=== PATIENT | female | born 1990 | race Caucasian/White ===

== ENCOUNTER → 2017-12-12 11:47 | Outpatient (CLI) | payer OTHER, SELFPAY ==
[2017-12-12 12:32] LABS: Add Manual Diff / Slide Review NO; Basophils Percent Auto 0.4 % (0-2); Eosinophils Percent Auto 0.8 % (2-4); Hematocrit 41.6 % (36-46); Hemoglobin 14.2 g/dL (12.0-16.0); Lymphocytes Percent Auto 21.3 % (25-40); Mean Corpuscular HGB Conc 34.1 % (30-36); Mean Corpuscular Hemoglobin 30.4 PG (26-34); Mean Corpuscular Volume 89.4 fL (80-100); Monocytes Percent Auto 6.5 % (3-14); Neutrophils Absolute Auto 5900 /uL (3000-5900); Platelet Count 247 X10^3/uL (150-400); Red Blood Cell Count 4.66 X10^6/uL (4.0-5.2); Red Cell Distribution Width 12.6 % (11.6-14.8); White Blood Cell Count 8.3 X10^3/uL (4.5-11.0)
== END ==
PROVIDERS: Family Provider Family Medicine; PCP Family Medicine; Visit Provider Nurse Practitioner Family
DX: R10.31 Right lower quadrant pain (principal)
CPT/HCPCS: 36415; 85025

== ENCOUNTER → 2017-12-15 06:59 | Outpatient (CLI) | payer OTHER, SELFPAY ==
--- NOTE | 2017-12-15 07:00 | DI.US.S_ITS ---
PROCEDURE: US PELVIC COMPLETE INDICATIONS: PELVIC PAIN TECHNIQUE: Real-time scanning was performed of the pelvic organs, with image documentation. Additional endovaginal scanning was necessary due to incomplete visualization of the adnexal and endometrial structures by transabdominal scanning. COMPARISON: [facility], CT, ABDOMEN/PELVIS WITH CONTRAST, 05/26/2009, 15:45. FINDINGS: Transabdominal scanning: Limited scanning through the kidneys shows no hydronephrosis. No pathologic free abdominal or pelvic fluid. Endovaginal scanning: Uterus: Uterus is normal in size at 6.1 x 2.4 x 3.3 cm. The endometrium measures 3.3 mm in combined thickness. Ovaries: Left ovary not visualized. 1.2 cm follicular cyst involves the right ovary. IMPRESSION: No source for pelvic pain identified sonographically. Dictated by: Tim Mo [facility] Interpreted: Dotty Baker MD on 12/15/2017 at 8:56 Approved by: Dotty Baker MD, PhD on 12/15/2017 at 11:39
== END ==
PROVIDERS: Family Provider Family Medicine; PCP Family Medicine; Visit Provider Nurse Practitioner Family
DX: R10.2 Pelvic and perineal pain (principal)
CPT/HCPCS: 76830; 76856

== ENCOUNTER → 2017-12-21 12:44 | Outpatient (CLI) | payer OTHER, SELFPAY ==
[2017-12-21 14:41] LABS: Pregnancy Test Urine Negative (Negative)
== END ==
PROVIDERS: Family Provider Family Medicine; PCP Family Medicine; Visit Provider Nurse Practitioner Family
DX: N91.2 Amenorrhea, unspecified (principal)
CPT/HCPCS: 81025

== ENCOUNTER → 2018-05-31 11:20 | Outpatient (CLI) | payer OTHER, SELFPAY ==
[2018-05-31 12:13] LABS: Prolactin 16.9 ng/mL (3.0-18.6)
[2018-05-31 12:26] LABS: TSH w/ Reflex to FT4 1.63 uIU/mL (0.47-4.68)
== END ==
PROVIDERS: PCP Family Medicine; Visit Provider Specialist
DX: N91.2 Amenorrhea, unspecified (principal)
CPT/HCPCS: 36415; 84146; 84443

== ENCOUNTER → 2020-05-01 11:10 | Outpatient (CLI) | payer OTHER, SELFPAY ==
[2020-05-01 11:16] LABS: Bacteria Urine None Seen; RBC Urine None Seen (0-5/HPF); WBC Urine None Seen (0-5/HPF)
[2020-05-01 12:53] LABS: Appearance Urine UA CLEAR; Bilirubin Urine UA NEGATIVE (NEGATIVE); Color Urine UA YELLOW; Glucose Urine UA NEGATIVE (Negative); Ketones Urine UA NEGATIVE (NEGATIVE); Leukocyte Esterase Urine UA NEGATIVE (NEGATIVE); Nitrite Urine UA NEGATIVE (Negative); Occult Blood Urine UA NEGATIVE (Negative); Protein Urine UA NEGATIVE (Negative); Urobilinogen Urine UA 0.2 E.U./dL (0.2)
[2020-05-01 13:04] LABS: Amorphous Sediment Urine 2+; Culture Indicated Urine Cult Not Indicated; pH Urine UA 7.5 (4.5-8.0)
[2020-05-01 14:04] LABS: Creatinine Urine Random 35.6 mg/dL
[2020-05-01 14:22] LABS: Microalbumin Urine Random < 0.6 mg/dL (0-1.6)
[2020-05-01 14:27] LABS: Add Manual Diff / Slide Review NO; Basophils Absolute Auto 0 /uL (0-100); Basophils Percent Auto 0.5 % (0-2); Eosinophils Absolute Auto 0 /uL (0-450); Eosinophils Percent Auto 0.6 % (2-4); Hematocrit 40.6 % (36-46); Hemoglobin 13.8 g/dL (12.0-16.0); Lymphocytes Absolute Auto 1700 /uL (1100-4500); Lymphocytes Percent Auto 27.9 % (25-40); Mean Corpuscular Hemoglobin 30.5 PG (26-34); Mean Corpuscular Volume 89.7 fL (80-100); Monocytes Absolute Auto 500 /uL (0-900); Monocytes Percent Auto 7.8 % (3-14); Neutrophils Absolute Auto 3800 /uL (1500-7000); Neutrophils Percent Auto 63.2 % (50-75); Platelet Count 244 X10^3/uL (150-400); Red Blood Cell Count 4.53 X10^6/uL (4.0-5.2); White Blood Cell Count 6.1 X10^3/uL (4.5-11.0)
[2020-05-01 15:22] LABS: Alanine Aminotransferase 16 IU/L (<35); Albumin 4.4 g/dL (3.5-5.0); Albumin Globulin Ratio 1.6 (1.0-2.8); Alkaline Phosphatase 56 U/L (38-126); Aspartate Aminotransferase 20 IU/L (14-36); BUN Creatinine Ratio 14.8 (6-22); Bilirubin Total 0.3 mg/dL (0.2-1.3); Blood Urea Nitrogen 9 mg/dL (7-17); Calcium 9.3 mg/dL (8.4-10.2); Carbon Dioxide 24 mmol/L (22-32); Chloride 105 mmol/L (98-107); Cholesterol 177 mg/dL (140-199); Estimated Glomerular Filt Rate > 60.0 mL/min (>60); Globulin 2.7 g/dL (1.7-4.1); Glucose 98 mg/dL (70-100); HDL Cholesterol 48 mg/dL (40-60); HEMOLYSIS < 15 (0-50); LDL Cholesterol Calculated 109 mg/dL (<100); Potassium 4.2 mmol/L (3.4-5.1); Sodium 139 mmol/L (137-145); Total Protein 7.1 g/dL (6.3-8.2); Triglycerides 99 mg/dL (35-150)
[2020-05-01 15:37] LABS: Thyroid Stimulating Hormone 1.93 uIU/mL (0.47-4.68)
== END ==
PROVIDERS: Family Provider Family Medicine; PCP Family Medicine; Referring Provider Family Medicine; Visit Provider Family Medicine
DX: I10 Essential (primary) hypertension (principal); R00.2 Palpitations
CPT/HCPCS: 36415; 80053; 80061; 81001; 82043; 82570; 84443; 85025

== ENCOUNTER → 2020-05-06 13:34 | Outpatient (CLI) | payer OTHER, SELFPAY ==
--- NOTE | 2020-06-05 14:47 | P.HOLT.S_ITS ---
Information Services Assistant Report Referral & Results Date Patient Seen: 05/06/20 Requesting provider: Renae Thompson Indication: Hypertension Duration of monitoring (days): 14 Diary information: Patient at 24 patient triggered events and 20 patient diary entries All of these events were associated with sinus rhythm only Data: Minimum heart rate identified was 51 beats per minute at 08:33 on 05/09/2020 Maximum heart rate was 170 beats per minute at 10:55 on 05/10/2020 Less than 1% of identified beats rather ventricular supraventricular ectopic in origin No other dysrhythmias identified Impression: Normal 14 day cardiac surgeon without evidence of any dysrhythmia of any significance No correlation between patient reported symptoms and any dysrhythmia Clinical correlation suggested
== END ==
PROVIDERS: Family Provider Family Medicine; PCP Family Medicine; Referring Provider Family Medicine; Visit Provider Family Medicine
DX: I10 Essential (primary) hypertension (principal); R00.0 Tachycardia, unspecified
CPT/HCPCS: 0296T; 0298T

== ENCOUNTER → 2020-05-29 14:43 | Outpatient (CLI) | payer OTHER, SELFPAY ==
--- NOTE | 2020-05-29 14:44 | DI.ECHO.S_ITS ---
[facility] +---------+ [facility] +---------+ : : [address] : : : : [id number] : : : : Phone: [phone] Echocardiogram Report + + :Name: LEO DUNLAP Study Date: 05/29/2020 Height: 64 in : [id number] 189 lb : : Gender: Female BSA: 1.9 m2 : :: 1990 Age: 29 yrs BP: 156/102 mmHg: :Reason For Study: Hypertension : : Performed By: Makenna Norris : :Referring: ELISEO ASENCIO : + + Interpretation Summary 1) Normal left ventricular thickness, size, wall motion, and systolic function (EF 60-65%). 2) Normal right ventricular size and function. 3) No significant valvular abnormalities. 4) Hypertension present during the study (BP 156/102mmHg). 5) No prior Echo available for comparison. Procedure: A two-dimensional transthoracic echocardiogram with color flow and Doppler was performed. The study quality was technically adequate. There is no prior echocardiogram noted for this patient. The patient was in sinus tachycardia with heart rates between 104-117 bpm during the exam. Left Ventricle: The left ventricle is normal in size and wall thickness. The ejection fraction is estimated to be 60-65%. Left ventricular systolic function appears normal without focal wall motion abnormalities. Right Ventricle: The right ventricle is normal in size and function. Atria: The left atrium is mildly dilated. Right atrial size is normal. There is no Doppler evidence for an interatrial shunt. Mitral Valve: The mitral valve is normal in structure and function. There is no mitral regurgitation noted. Aortic Valve: The aortic valve is trileaflet. The aortic valve opens well. There is no aortic valve stenosis. No aortic regurgitation is present. Tricuspid Valve: The tricuspid valve is normal in structure and function. There is a trace or physiologic amount of tricuspid regurgitation. Pulmonary artery pressures cannot be estimated because of the lack of a measurable TR jet velocity. Pulmonic Valve: The pulmonic valve leaflets are thin and pliable; valve motion is normal. Great Vessels: The aortic root is normal size. The ascending aorta is normal in size. The pulmonary artery is normal size. The IVC is of normal diameter and collapses greater than 50% with a sniff. This suggests a low right atrial pressure of 3 mm Hg. Pericardium/ Pleura There is no pericardial effusion. MMode/2D Measurements & Calculations LVIDd: 5.0 cm LVOT diam: 2.2 cm LVIDs: 2.4 cm Ao root diam: 3.0 cm FS: 50.8 % asc Aorta Diam: 3.0 cm IVSd: 0.64 cm Ao Arch Diam (Prox Trans): 2.3 cm LVPWd: 0.85 cm LV feldman. diameter/BSA (cm/m^2): 2.6 LV sys. diameter/BSA (cm/m^2): 1.3 LA A2 area: 17.2 cm2 RA long axis: 5.2 cm LA A4 area: 21.7 cm2 RA area: 15.5 cm2 LA length (vol): 5.2 cm RA vol: 39.2 ml LA vol: 60.6 ml RA : 20.5 ml/m2 LA vol index: 31.7 ml/m2 IVC diam: 1.0 cm TAPSE: 2.5 cm Doppler Measurements & Calculations Ao V2 max: 147.8 cm/sec LVOT Max Jose: 123.1 cm/sec Ao V2 mean: 97.9 cm/sec LV V1 max P.1 mmHg Ao max P.7 mmHg LV V1 VTI: 19.6 cm Ao mean P.3 mmHg YOVANY(I,D): 3.5 cm2 Ao V2 VTI: 21.4 cm YOVANY(V,D): 3.2 cm2 sev ratio: 0.92 YOVANY indexed to BSA (cm^2/m^2): 1.8 MV E max jose: 87.4 cm/sec PA V2 max: 113.5 cm/sec MV A max jose: 109.6 cm/sec PA V2 mean: 81.4 cm/sec MV E/A: 0.80 PA mean P.9 mmHg Med Peak E' Jose: 11.3 cm/sec PA Accel Time: 0.10 sec E/E' med: 7.8 Lat Peak E' Jose: 14.0 cm/sec E/E' lat: 6.2 E/e' average: 7.0 MV dec time: 0.15 sec SV(LVOT): 74.8 ml Reading Physician:05:11 PM
== END ==
PROVIDERS: Family Provider Family Medicine; PCP Family Medicine; Referring Provider Family Medicine; Visit Provider Family Medicine
DX: R03.0 Elevated blood-pressure reading, without diagnosis of hypertension (principal)
CPT/HCPCS: 93306

== ENCOUNTER → 2020-08-14 12:40 | Outpatient (CLI) | payer OTHER, SELFPAY ==
[2020-08-14 14:22] LABS: BUN Creatinine Ratio 17.1 (6-22); Blood Urea Nitrogen 12 mg/dL (7-17); Carbon Dioxide 25 mmol/L (22-32); Chloride 103 mmol/L (98-107); Estimated Glomerular Filt Rate > 60.0 mL/min (>60); Glucose 84 mg/dL (70-100); HEMOLYSIS < 15 (0-50); Potassium 3.9 mmol/L (3.4-5.1); Sodium 135 mmol/L (137-145)
== END ==
PROVIDERS: Family Provider Family Medicine; PCP Family Medicine; Referring Provider Family Medicine; Visit Provider Family Medicine
DX: I10 Essential (primary) hypertension (principal)
CPT/HCPCS: 36415; 80048; 82088; 84244

== ENCOUNTER → 2020-08-22 11:24 | Outpatient (CLI) | payer OTHER, SELFPAY ==
[2020-08-25 00:07] LABS: Normetanephrine Total 316 ug/24 hr (95-449); Urine, Metanephrine 90 ug/L (Undefined); Urine, Normetanephrine 218 ug/L (Undefined)
== END ==
PROVIDERS: Family Provider Family Medicine; PCP Family Medicine; Referring Provider Family Medicine; Visit Provider Family Medicine
DX: I10 Essential (primary) hypertension (principal)
CPT/HCPCS: 83835

== ENCOUNTER → 2020-09-23 12:10 | Outpatient (CLI) | payer OTHER, SELFPAY ==
--- NOTE | 2020-09-23 12:11 | DI.MRI.S_ITS ---
PROCEDURE: MR STROKE Pre- and post-contrast brain MRI, non-contrast brain MR angiogram, pre- and postcontrast neck MR angiogram INDICATIONS: visual field changes, uncontrolled hypertension TECHNIQUE: Brain: Noncontrast axial T1 spin echo, axial T2 fast spin echo, sagittal and axial FLAIR, coronal T2 fast spin echo, axial gradient echo, axial diffusion and ADC through the brain. After the administration of contrast, axial 3D VIBE of the cranial vasculature and brain. Brain MRA: Non-contrast 3-D time of flight MR angiogram, with multiple nvshrii-gjzwdmvpz-idhpauiikh (MIP) reformats performed. Neck MRA: Axial and sagittal TruFISP through the neck. Coronal dynamic MR angiogram during administration of contrast in the arterial and venous phases, with 3-dimenstional dpltsgi-gkeghxqkn-lxokudgzge (MIP) reformats constructed from subtraction images. COMPARISON: None. FINDINGS: Image quality: Excellent. BRAIN: CSF spaces: Ventricles are normal in size and shape. Basal cisterns are patent. No extra-axial fluid collections. Brain: No intracranial bleeds or mass effects. Montoya-white matter interface is normal. Diffusion weighted images show no acute ischemic insults. Brainstem appears normal. Normal intravascular flow voids are present. Dural sinuses demonstrate normal postcontrast enhancement. No abnormal intracranial enhancement. Skull and face: Calvarial marrow signal is normal. Orbits appear normal. Sinuses: Sinuses and mastoids are clear. BRAIN MR ANGIOGRAM: Anterior circulation: Intracranial internal carotid arteries are normal in size and enhancement. The flow within the paired anterior cerebral arteries is normal and symmetric. The flow within the middle cerebral arteries is normal and symmetric. The anterior communicating artery is seen. No stenoses, occlusions, or aneurysms. Posterior circulation: The visualized portions of the vertebral arteries demonstrate normal caliber, and join to form a normal appearing basilar artery. The flow within the posterior cerebral arteries is normal and symmetric. Right posterior cerebral artery has a origin which is a congenital anatomic variant. No stenoses, occlusions, or aneurysms. NECK MR ANGIOGRAM: Carotids: Great vessels demonstrate a conventional anatomy as they arise from the aortic arch. The origins of the common carotid arteries appear patent. The calibers and courses of both common carotid arteries are normal. The bifurcation regions appear normal bilaterally. The internal carotid arteries demonstrate normal course and caliber. Posterior circulation: The origins of the vertebral arteries appear patent. More superior portions of both vertebral arteries demonstrate normal course and caliber, and join to form a normal appearing basilar artery. Miscellaneous: Subclavian arteries appear patent. Pre-contrast images through the neck show no soft tissue abnormalities. IMPRESSION: BRAIN MRI: 1. No intracranial disease process. 2. No areas of acute or chronic infarction. 3. No abnormal intracranial mass or mass effect. 4. No suspicious postcontrast enhancement. BRAIN MR ANGIOGRAM: Normal MR angiogram of the head. NECK MR ANGIOGRAM: Normal MR angiogram of the neck. Dictated by: Dotty Baker MD, PhD on 09/23/2020 at 13:40 Approved by: Dotty Baker MD, PhD on 09/23/2020 at 13:56
== END ==
PROVIDERS: Family Provider Family Medicine; PCP Family Medicine; Referring Provider Family Medicine; Visit Provider Family Medicine
DX: H53.9 Unspecified visual disturbance (principal); I10 Essential (primary) hypertension
CPT/HCPCS: 70548; 70553

== ENCOUNTER → 2021-02-05 09:52 | Outpatient (CLI) | payer OTHER, SELFPAY ==
[2021-02-05 12:07] LABS: BUN Creatinine Ratio 16.7 (6-22); Blood Urea Nitrogen 12 mg/dL (7-17); Calcium 9.1 mg/dL (8.4-10.2); Carbon Dioxide 30 mmol/L (22-32); Chloride 104 mmol/L (98-107); Cholesterol 171 mg/dL (140-199); Estimated Glomerular Filt Rate > 60.0 mL/min (>60); Glucose 83 mg/dL (70-100); HDL Cholesterol 48 mg/dL (40-60); HEMOLYSIS < 15 (0-50); LDL Cholesterol Calculated 106 mg/dL (<100); Magnesium 1.9 mg/dL (1.6-2.3); Sodium 137 mmol/L (137-145); Triglycerides 84 mg/dL (35-150)
[2021-02-05 13:18] LABS: Thyroid Stimulating Hormone 1.26 uIU/mL (0.47-4.68)
[2021-02-11 16:32] LABS: Renin Activity 0.413 ng/mL/hr (0.167-5.380)
== END ==
PROVIDERS: Family Provider Family Medicine; PCP Family Medicine; Referring Provider Internal Medicine Cardiovascular Disease; Visit Provider Internal Medicine Cardiovascular Disease
DX: I10 Essential (primary) hypertension (principal)
CPT/HCPCS: 36415; 80048; 80061; 82088; 83735; 83835; 84244; 84443

== ENCOUNTER → 2021-08-02 09:57 | Outpatient (CLI) | payer OTHER, SELFPAY | PROVIDERS: Family Provider Family Medicine; PCP Family Medicine; Visit Provider Family Medicine | DX: Z34.91 Encounter for supervision of normal pregnancy, unspecified, first trimester (principal); Z3A.10 10 weeks gestation of pregnancy | CPT/HCPCS: 87086 ==

== ENCOUNTER → 2021-08-02 11:06 | Outpatient (CLI) | payer OTHER, SELFPAY ==
[2021-08-02 12:05] LABS: Add Manual Diff / Slide Review NO; Appearance Urine UA SL CLOUDY; Basophils Absolute Auto 0 /uL (0-100); Basophils Percent Auto 0.3 % (0-2); Bilirubin Urine UA NEGATIVE (NEGATIVE); Color Urine UA YELLOW; Eosinophils Absolute Auto 0 /uL (0-450); Eosinophils Percent Auto 0.4 % (2-4); Glucose Urine UA NEGATIVE (Negative); Hematocrit 37.5 % (36-46); Hemoglobin 12.9 g/dL (12.0-16.0); Ketones Urine UA TRACE (NEGATIVE); Leukocyte Esterase Urine UA NEGATIVE (NEGATIVE); Lymphocytes Absolute Auto 1800 /uL (1100-4500); Lymphocytes Percent Auto 21.1 % (25-40); Mean Corpuscular HGB Conc 34.5 % (30-36); Mean Corpuscular Hemoglobin 30.9 PG (26-34); Mean Corpuscular Volume 89.7 fL (80-100); Monocytes Absolute Auto 600 /uL (0-900); Monocytes Percent Auto 7.3 % (3-14); Neutrophils Absolute Auto 5900 /uL (1500-7000); Neutrophils Percent Auto 70.9 % (50-75); Nitrite Urine UA NEGATIVE (Negative); Occult Blood Urine UA NEGATIVE (Negative); Platelet Count 245 X10^3/uL (150-400); Protein Urine UA NEGATIVE (Negative); Red Blood Cell Count 4.18 X10^6/uL (4.0-5.2); Red Cell Distribution Width 12.5 % (11.6-14.8); Urobilinogen Urine UA 0.2 E.U./dL (0.2); White Blood Cell Count 8.4 X10^3/uL (4.5-11.0)
[2021-08-02 13:39] LABS: Alanine Aminotransferase 19 IU/L (<35); Albumin Globulin Ratio 1.5 (1.0-2.8); Alkaline Phosphatase 53 U/L (38-126); Aspartate Aminotransferase 20 IU/L (14-36); BUN Creatinine Ratio 15.2 (6-22); Bilirubin Total 0.4 mg/dL (0.2-1.3); Blood Urea Nitrogen 7 mg/dL (7-17); Calcium 9.5 mg/dL (8.4-10.2); Carbon Dioxide 25 mmol/L (22-32); Chloride 103 mmol/L (98-107); Estimated Glomerular Filt Rate > 60.0 mL/min (>60); Globulin 2.6 g/dL (1.7-4.1); Glucose 82 mg/dL (70-100); HEMOLYSIS < 15 (0-50); Potassium 4.3 mmol/L (3.4-5.1); Sodium 134 mmol/L (137-145); Total Protein 6.6 g/dL (6.3-8.2)
[2021-08-02 16:09] LABS: Hepatitis B Surface Antigen NEGATIVE s/c (NEGATIVE)
[2021-08-02 16:34] LABS: HIV 1 & 2 Ab/Ag 4th Gen Combo NEGATIVE (NEGATIVE)
[2021-08-02 16:44] LABS: Hep C Virus Ab w/Reflex Quant NEGATIVE s/c (NEGATIVE)
[2021-08-03 11:08] LABS: RPR Screen Non Reactive (Non Reactive); Varicella IgG Antibody 1253 index (Immune >165)
== END ==
PROVIDERS: Family Provider Family Medicine; PCP Family Medicine; Referring Provider Family Medicine; Visit Provider Family Medicine
DX: O16.1 Unspecified maternal hypertension, first trimester (principal); Z3A.10 10 weeks gestation of pregnancy
CPT/HCPCS: 36415; 80053; 80055; 81003; 86787; 86803; 86850; 86900; 86901; 87086; 87389

== ENCOUNTER → 2021-08-06 09:53 | Outpatient (CLI) | payer OTHER, SELFPAY ==
[2021-08-06 16:51] LABS: Collection Time Urine 24 Hours; Protein (Total) Urine Random 5 mg/dL (0-12); Total Protein 24 Hour Urine 123 mg/day (42-225); Total Volume Urine 2450 mL
== END ==
PROVIDERS: Family Provider Family Medicine; PCP Family Medicine; Referring Provider Family Medicine; Visit Provider Family Medicine
DX: I10 Essential (primary) hypertension (principal); Z3A.10 10 weeks gestation of pregnancy
CPT/HCPCS: 84156

== ENCOUNTER 2021-09-08 15:32 | Emergency (ER) | payer OTHER, SELFPAY ==
[2021-09-08 15:39] VITALS: BP 143/79; PULSE 110; RESP 20; TEMP 36.7; O2SAT 100; BMI 33.5
[2021-09-08 16:15] LABS: Add Manual Diff / Slide Review NO; Basophils Absolute Auto 0 /uL (0-100); Basophils Percent Auto 0.2 % (0-2); Eosinophils Absolute Auto 100 /uL (0-450); Eosinophils Percent Auto 0.8 % (2-4); Hematocrit 34.8 % (36-46); Hemoglobin 12.2 g/dL (12.0-16.0); Lymphocytes Absolute Auto 1900 /uL (1100-4500); Lymphocytes Percent Auto 17.5 % (25-40); Mean Corpuscular HGB Conc 35.1 % (30-36); Mean Corpuscular Hemoglobin 31.3 PG (26-34); Mean Corpuscular Volume 89.2 fL (80-100); Monocytes Absolute Auto 800 /uL (0-900); Monocytes Percent Auto 7.2 % (3-14); Neutrophils Absolute Auto 8200 /uL (1500-7000); Neutrophils Percent Auto 74.3 % (50-75); Platelet Count 232 X10^3/uL (150-400); Red Cell Distribution Width 12.7 % (11.6-14.8)
[2021-09-08 16:26] LABS: Alanine Aminotransferase 17 IU/L (<35); Albumin 3.9 g/dL (3.5-5.0); Albumin Globulin Ratio 1.4 (1.0-2.8); Alkaline Phosphatase 46 U/L (38-126); Aspartate Aminotransferase 25 IU/L (14-36); BUN Creatinine Ratio 18.6 (6-22); Bilirubin Total 0.3 mg/dL (0.2-1.3); Blood Urea Nitrogen 8 mg/dL (7-17); Calcium 9.2 mg/dL (8.4-10.2); Carbon Dioxide 26 mmol/L (22-32); Chloride 105 mmol/L (98-107); Creatine Kinase 61 U/L (30-135); Estimated Glomerular Filt Rate > 60.0 mL/min (>60); Globulin 2.8 g/dL (1.7-4.1); Glucose 84 mg/dL (70-100); HEMOLYSIS 19 (0-50); Lipase 110 U/L (23-300); Magnesium 1.7 mg/dL (1.6-2.3); Potassium 3.8 mmol/L (3.4-5.1); Sodium 134 mmol/L (137-145); Total Protein 6.7 g/dL (6.3-8.2)
[2021-09-08 16:30] VITALS: BP 141/74; PULSE 107; RESP 17; O2SAT 98
[2021-09-08 16:33] VITALS: BP 141/74; PULSE 98; RESP 20; O2SAT 100
[2021-09-08 16:37] LABS: Troponin I < 0.012 ng/mL (0.01-0.034)
--- NOTE | 2021-09-08 16:41 | ED_ITS ---
HPI - Arrhythmia/Palpitations General Chief Complaint: Arrhythmia/Palpitations Stated Complaint: A-FIB, Hx 15 weeks Time Seen by Provider: 09/08/21 15:46 Source: patient and family Mode of arrival: Ambulatory History of Present Illness HPI narrative: 31-year-old female. Has a history of POTS syndrome and also inappropriate tachy cardia. She is also 15 weeks . She is on labetalol because of her . Has seen cardiology in the past. Is here because she states that her Apple watch told her that she was having episodes of AFib. She states she does feel like her heart was beating fast. She is not having chest pain. No shortness of breath. No /GI/ related complaints. Related Data Home Medications Medication Instructions Recorded Confirmed potassium chloride 10 mEq 10 meq PO DAILY 06/04/21 06/04/21 tablet,extended release Previous Rx's Medication Instructions Recorded albuterol sulfate 90 mcg/actuation 2 puff INHALATION Q4-6H PRN #8.5 05/28/19 aerosol inhaler gram hydroxyzine HCl 25 mg tablet See Rx Instructions .ROUTE 05/03/21 .COMPLEX #60 tab escitalopram oxalate 5 mg tablet See Rx Instructions .ROUTE 07/05/21 .COMPLEX #90 tab labetalol 200 mg tablet 200 mg PO BID #60 tab 08/30/21 Allergies Allergy/AdvReac Type Severity Reaction Status Date / Time avocado [AVOCADO] Allergy Unknown Verified 09/08/21 15:43 banana [BANANA] Allergy Unknown Verified 09/08/21 15:43 egg [EGG] Allergy Unknown Verified 09/08/21 15:43 Review of Systems Constitutional Constitutional: Reports system reviewed and no additional complaints, except as documented Cardiovascular Cardiovascular: Reports system reviewed and no additional complaints, except as documented Respiratory Respiratory: Reports system reviewed and no additional complaints, except as documented Gastrointestinal Gastrointestinal: Reports system reviewed and no additional complaints, except as documented Integumentary/Breasts Skin/Breast: Reports system reviewed and no additional complaints, except as documented Hematologic/Lymphatic On Anticoagulants: No Patient History Medical History Abnormal Pap smear of cervix (2009) Anxiety Asthma Bipolar disorder (2015) JOSE M I (cervical intraepithelial neoplasia I) Depression (2015) Essential hypertension History of allergy HPV (human papilloma virus) infection (2009) Surgical History (Updated 07/29/21 @ 11:50 by Asia Villagran RN) H/O dilation and curettage S/P cubital tunnel release (~2017) Family History Mother Age: 46 Hypertension Diabetes mellitus Hyperlipidemia Father Alcoholism Family/Other Stroke Arrhythmia CHAPARRO (obstructive sleep apnea) Social History marital status: unmarried,living together household members: significant other lives independently: Yes housing: house pets and animals: Yes (dogs) education level: college occupational status: employed 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 use: always water heater temp set < 120 deg: Yes working smoke detector in home: Yes fire extinguisher in home: Yes carbon monox detector in home: Yes firearms in home: Yes firearms unloaded and locked: Yes do you feel safe at home: Yes Smoking Status: Never smoker second hand exposure: No alcohol intake: former substance use type: does not use during the past year weight has: remained stable well-balanced diet: about half the time daily servings fruits/ve-1 caffeine: Yes (200mg) Type(s) of exercise: none Smoking Status: Never smoker alcohol intake frequency: 0-2 drinks per day Substance Use Type: does not use Exam Initial Vital Signs Initial Vital Signs: Vital Signs Temperature 98.1 F 09/08/21 15:39 Pulse Rate 110 H 09/08/21 15:39 Respiratory Rate 20 09/08/21 15:39 Blood Pressure 143/79 H 09/08/21 15:39 Pulse Oximetry 100 09/08/21 15:39 HENMT Head: normal to inspection and normocephalic Resp Effort & Inspection: normal respiratory effort Auscultation: clear to auscultation bilaterally Cardio Rate: tachycardic Rhythm: regular rhythm Skin General: no rashes or lesions noted Neuro General: patient alert, patient awake and moves all extremities Extrem General: normal to inspection and capillary refill normal Psych Appearance: grossly normal and well kempt Course Orders Ordered: ED Orders 09/08/21 15:44 EKG-12 Lead Stat 09/08/21 16:05 Complete Blood Count AUTO DIFF Stat Comprehensive Metabolic Panel Stat Lipase Stat Magnesium Stat Troponin & CK Cardiac Panel Stat Vital Signs Vital signs: Vital Signs - 8 hr 09/08/21 15:39 09/08/21 16:30 09/08/21 16:33 Temperature 98.1 F Pulse Rate 110 H 107 H 98 H Respiratory Rate 20 17 20 Blood Pressure 143/79 H 141/74 H 141/74 H Pulse Oximetry 100 98 100 MDM - Arrhythmia/Palpitations Lab Data Attestation: I reviewed the patient's lab results. Result diagrams: 09/08/21 16:05 09/08/21 16:05 Labs: Lab Results 09/08/21 09/08/21 Range/Units 16:05 16:05 WBC 11.0 (4.5-11.0) X10^3/uL RBC 3.90 L (4.0-5.2) X10^6/uL Hgb 12.2 (12.0-16.0) g/dL Hct 34.8 L (36-46) % MCV 89.2 (80-100) fL MCH 31.3 (26-34) PG MCHC 35.1 (30-36) % RDW 12.7 (11.6-14.8) % Plt Count 232 (150-400) X10^3/uL Neut % (Auto) 74.3 (50-75) % Lymph % (Auto) 17.5 L (25-40) % Canadian % (Auto) 7.2 (3-14) % Eos % (Auto) 0.8 L (2-4) % Baso % (Auto) 0.2 (0-2) % Neut # (Auto) 8200 H (8405-5988) /uL Lymph # (Auto) 1900 (7044-0861) /uL Canadian # (Auto) 800 (0-900) /uL Eos # (Auto) 100 (0-450) /uL Baso # (Auto) 0 (0-100) /uL Sodium 134 L (137-145) mmol/L Potassium 3.8 (3.4-5.1) mmol/L Chloride 105 (98-107) mmol/L Carbon Dioxide 26 (22-32) mmol/L BUN 8 (7-17) mg/dL Creatinine 0.43 L (0.52-1.04) mg/dL Estimated GFR > 60.0 (>60) mL/min BUN/Creatinine Ratio 18.6 (6-22) Glucose 84 (70-100) mg/dL Calcium 9.2 (8.4-10.2) mg/dL Magnesium 1.7 (1.6-2.3) mg/dL Total Bilirubin 0.3 (0.2-1.3) mg/dL AST 25 (14-36) IU/L ALT 17 (<35) IU/L Alkaline Phosphatase 46 (38-126) U/L Total Creatine Kinase 61 (30-135) U/L CK-MB (CK-2) TNP CK-MB (CK-2) Rel Index TNP Troponin I < 0.012 (0.01-0.034) ng/mL Total Protein 6.7 (6.3-8.2) g/dL Albumin 3.9 (3.5-5.0) g/dL Globulin 2.8 (1.7-4.1) g/dL Albumin/Globulin Ratio 1.4 (1.0-2.8) Lipase 110 (23-300) U/L ECG Data Attestation: I personally reviewed and interpreted this ECG as follows: Prior ECG tracings: available for review Interpretation: Sinus tachycardia Ventricular rate 109 Normal axis Normal QRS Normal QTC No ST T wave changes MDM Narrative Medical decision making narrative: Patient is not having any GI or related complaints. She is not in atrial fibrillation. She did have copies of what her apple watch was calling atrial fibrillation and it is sinus rhythm with PACs. Patient is in sinus tachycardia here in the ER which is not uncommon for her given her prior history. No further workup is required here in the emergency department. She will continue all of her medications as directed and contact her primary doctor for a follow-u p. She expressed understanding agreement plan. Discharge Plan Departure Patient Disposition: Home Clinical Impression: Tachycardia, Instructions: DI for Tachycardia Activity Restrictions/Additional Instructions: Recommend that you keep all of your scheduled medical appointments continue to take all of your medications as directed. Return to the emergency department for any new or worsening symptoms. Prescriptions: No Action potassium chloride 10 mEq tablet extended release 10 meq PO DAILY 0RF albuterol sulfate 90 mcg/actuation HFA aerosol inhaler 2 puff INHALATION Q4-6H PRN (Reason: bronchospasm) Qty: 8.5 0RF labetalol 200 mg tablet 200 mg PO BID Qty: 60 2RF hydroxyzine HCl 25 mg tablet See Rx Instructions .ROUTE .COMPLEX Qty: 60 5RF Hold Instructions: , per Dr. Chinchilla Dose Instruction: TAKE 1 TO 2 TABLETS BY MOUTH 3 TO 4 TIMES DAILY NEEDED FOR ANXIETY Rx Instructions: TAKE 1 TO 2 TABLETS BY MOUTH 3 TO 4 TIMES DAILY NEEDED FOR ANXIETY escitalopram oxalate 5 mg tablet See Rx Instructions .ROUTE .COMPLEX Qty: 90 1RF Dose Instruction: TAKE 1 TABLET BY MOUTH DAILY Rx Instructions: TAKE 1 TABLET BY MOUTH DAILY Referrals: Renae Thompson MD [Primary Care Provider] -
== END 2021-09-08 16:55 | disposition home or self-care (01) ==
PROVIDERS: Emergency Provider Emergency Medicine; Family Provider Family Medicine; PCP Family Medicine
DX: O99.412 Diseases of the circulatory system complicating pregnancy, second trimester (principal); R00.0 Tachycardia, unspecified; Z3A.15 15 weeks gestation of pregnancy
CPT/HCPCS: 36415; 80053; 82550; 83690; 83735; 84484; 85025; 93005; 99283; 99284

== ENCOUNTER → 2021-10-04 11:05 | Outpatient (CLI) | payer OTHER, SELFPAY ==
[2021-10-04 11:48] LABS: Appearance Urine UA CLEAR; Bilirubin Urine UA NEGATIVE (NEGATIVE); Color Urine UA YELLOW; Glucose Urine UA NEGATIVE (Negative); Ketones Urine UA NEGATIVE (NEGATIVE); Leukocyte Esterase Urine UA NEGATIVE (NEGATIVE); Nitrite Urine UA NEGATIVE (Negative); Occult Blood Urine UA NEGATIVE (Negative); Protein Urine UA NEGATIVE (Negative); Urobilinogen Urine UA 0.2 E.U./dL (0.2)
[2021-10-04 11:57] LABS: Bacteria Urine None Seen; Culture Indicated Urine Cult Not Indicated; RBC Urine None Seen (0-5/HPF); Urine Comments Microscopic Normal; WBC Urine None Seen (0-5/HPF)
[2021-10-04 12:04] LABS: Creatinine Urine Random 48.9 mg/dL; Protein (Total) Urine Random 8 mg/dL (0-12); Protein Creatinine Ratio Urine 0.16 GRAM/24H
[2021-10-04 12:07] LABS: Add Manual Diff / Slide Review NO; Basophils Absolute Auto 0 /uL (0-100); Basophils Percent Auto 0.3 % (0-2); Eosinophils Absolute Auto 100 /uL (0-450); Eosinophils Percent Auto 0.5 % (2-4); Hematocrit 37.2 % (36-46); Hemoglobin 12.8 g/dL (12.0-16.0); Lymphocytes Absolute Auto 1400 /uL (1100-4500); Lymphocytes Percent Auto 12.1 % (25-40); Mean Corpuscular HGB Conc 34.3 % (30-36); Mean Corpuscular Hemoglobin 30.6 PG (26-34); Mean Corpuscular Volume 89.1 fL (80-100); Monocytes Absolute Auto 600 /uL (0-900); Monocytes Percent Auto 5.7 % (3-14); Neutrophils Absolute Auto 9100 /uL (1500-7000); Neutrophils Percent Auto 81.4 % (50-75); Platelet Count 215 X10^3/uL (150-400); Red Blood Cell Count 4.18 X10^6/uL (4.0-5.2); Red Cell Distribution Width 12.5 % (11.6-14.8); White Blood Cell Count 11.2 X10^3/uL (4.5-11.0)
[2021-10-04 12:08] LABS: Alanine Aminotransferase 23 IU/L (<35); Albumin 3.7 g/dL (3.5-5.0); Albumin Globulin Ratio 1.4 (1.0-2.8); Alkaline Phosphatase 62 U/L (38-126); Aspartate Aminotransferase 23 IU/L (14-36); BUN Creatinine Ratio 6.3 (6-22); Bilirubin Total 0.2 mg/dL (0.2-1.3); Blood Urea Nitrogen 3 mg/dL (7-17); Calcium 8.4 mg/dL (8.4-10.2); Carbon Dioxide 24 mmol/L (22-32); Chloride 106 mmol/L (98-107); Estimated Glomerular Filt Rate > 60 mL/min (>60); Globulin 2.7 g/dL (1.7-4.1); Glucose 77 mg/dL (70-100); HEMOLYSIS < 15 (0-50); Potassium 3.8 mmol/L (3.4-5.1); Sodium 135 mmol/L (137-145); Total Protein 6.4 g/dL (6.3-8.2)
== END ==
PROVIDERS: Family Provider Family Medicine; PCP Family Medicine; Referring Provider Family Medicine; Visit Provider Family Medicine
DX: I10 Essential (primary) hypertension (principal); Z34.80 Encounter for supervision of other normal pregnancy, unspecified trimester; R30.0 Dysuria
CPT/HCPCS: 36415; 80053; 81001; 82570; 84156; 85025; 87086

== ENCOUNTER → 2021-10-06 15:13 | Outpatient (CLI) | payer OTHER, SELFPAY | PROVIDERS: Family Provider Family Medicine; PCP Family Medicine; Visit Provider Nurse Practitioner Family | DX: J02.9 Acute pharyngitis, unspecified (principal) | CPT/HCPCS: 87070 ==

== ENCOUNTER → 2021-10-09 09:50 | Outpatient (CLI) | payer OTHER, SELFPAY ==
[2021-10-09 10:53] LABS: Collection Time Urine 24 Hours; Protein (Total) Urine Random < 5 mg/dL (0-12); Total Protein 24 Hour Urine 65 mg/day (42-225); Total Volume Urine 1300 mL
== END ==
PROVIDERS: Family Provider Family Medicine; PCP Family Medicine; Referring Provider Family Medicine; Visit Provider Family Medicine
DX: I10 Essential (primary) hypertension (principal); Z34.80 Encounter for supervision of other normal pregnancy, unspecified trimester
CPT/HCPCS: 84156

== ENCOUNTER → 2021-10-14 17:22 | Outpatient (CLI) | payer OTHER, SELFPAY ==
[2021-10-14 18:12] LABS: Influenza A - CEPHEID Flu A NEGATIVE (NEGATIVE); Influenza B - CEPHEID Flu B NEGATIVE (NEGATIVE)
[2021-10-14 18:22] LABS: COVID-19 CEPHEID PCR (VTM/NP) Negative (Negative)
== END ==
PROVIDERS: Family Provider Family Medicine; PCP Family Medicine; Visit Provider Nurse Practitioner Family
DX: R05.9 Cough, unspecified (principal); Z20.822 Contact with and (suspected) exposure to COVID-19
CPT/HCPCS: 0240U

== ENCOUNTER → 2021-11-03 11:41 | Outpatient (CLI) | payer OTHER, SELFPAY ==
[2021-11-03 12:52] LABS: Add Manual Diff / Slide Review NO; Basophils Absolute Auto 0 /uL (0-100); Basophils Percent Auto 0.3 % (0-2); Eosinophils Absolute Auto 100 /uL (0-450); Eosinophils Percent Auto 0.6 % (2-4); Hematocrit 34.7 % (36-46); Hemoglobin 12.1 g/dL (12.0-16.0); Lymphocytes Absolute Auto 1600 /uL (1100-4500); Lymphocytes Percent Auto 15.9 % (25-40); Mean Corpuscular Volume 88.7 fL (80-100); Monocytes Absolute Auto 600 /uL (0-900); Monocytes Percent Auto 6.3 % (3-14); Neutrophils Absolute Auto 8000 /uL (1500-7000); Neutrophils Percent Auto 76.9 % (50-75); Platelet Count 233 X10^3/uL (150-400); Red Blood Cell Count 3.91 X10^6/uL (4.0-5.2); Red Cell Distribution Width 12.9 % (11.6-14.8); White Blood Cell Count 10.4 X10^3/uL (4.5-11.0)
[2021-11-03 13:11] LABS: Alanine Aminotransferase 25 IU/L (<35); Albumin 3.5 g/dL (3.5-5.0); Albumin Globulin Ratio 1.3 (1.0-2.8); Alkaline Phosphatase 66 U/L (38-126); Aspartate Aminotransferase 26 IU/L (14-36); BUN Creatinine Ratio 15.8 (6-22); Bilirubin Total 0.2 mg/dL (0.2-1.3); Blood Urea Nitrogen 6 mg/dL (7-17); Calcium 8.7 mg/dL (8.4-10.2); Carbon Dioxide 24 mmol/L (22-32); Chloride 104 mmol/L (98-107); Estimated Glomerular Filt Rate > 60 mL/min (>60); Globulin 2.6 g/dL (1.7-4.1); Glucose 78 mg/dL (70-100); HEMOLYSIS < 15 (0-50); Sodium 134 mmol/L (137-145); Total Protein 6.1 g/dL (6.3-8.2)
[2021-11-03 13:35] LABS: TSH w/ Reflex to FT4 2.16 uIU/mL (0.47-4.68)
[2021-11-03 15:42] LABS: Creatinine Urine Random 120.1 mg/dL; Protein (Total) Urine Random 9 mg/dL (0-12); Protein Creatinine Ratio Urine 0.07 GRAM/24H
== END ==
PROVIDERS: Family Provider Family Medicine; PCP Family Medicine; Referring Provider Family Medicine; Visit Provider Family Medicine
DX: Z34.80 Encounter for supervision of other normal pregnancy, unspecified trimester (principal); R53.83 Other fatigue; I10 Essential (primary) hypertension; Z3A.21 21 weeks gestation of pregnancy
CPT/HCPCS: 36415; 80053; 82570; 84156; 84443; 85025

== ENCOUNTER → 2021-11-06 08:33 | Outpatient (CLI) | payer OTHER, SELFPAY ==
[2021-11-06 10:50] LABS: Collection Time Urine 24 Hours; Protein (Total) Urine Random 7 mg/dL (0-12); Total Protein 24 Hour Urine 119 mg/day (42-225); Total Volume Urine 1700 mL
== END ==
PROVIDERS: Family Provider Family Medicine; PCP Family Medicine; Referring Provider Family Medicine; Visit Provider Family Medicine
DX: Z34.80 Encounter for supervision of other normal pregnancy, unspecified trimester (principal); I10 Essential (primary) hypertension; Z3A.21 21 weeks gestation of pregnancy
CPT/HCPCS: 84156

== ENCOUNTER → 2021-11-16 13:03 | Outpatient (CLI) | payer OTHER, SELFPAY ==
[2021-11-16 14:14] LABS: Add Manual Diff / Slide Review NO; Basophils Absolute Auto 0 /uL (0-100); Basophils Percent Auto 0.3 % (0-2); Eosinophils Absolute Auto 100 /uL (0-450); Eosinophils Percent Auto 0.7 % (2-4); Hematocrit 33.8 % (36-46); Hemoglobin 11.7 g/dL (12.0-16.0); Lymphocytes Absolute Auto 1900 /uL (1100-4500); Lymphocytes Percent Auto 18.3 % (25-40); Mean Corpuscular HGB Conc 34.7 % (30-36); Mean Corpuscular Hemoglobin 30.6 PG (26-34); Mean Corpuscular Volume 88.3 fL (80-100); Monocytes Absolute Auto 700 /uL (0-900); Monocytes Percent Auto 6.5 % (3-14); Neutrophils Absolute Auto 7500 /uL (1500-7000); Neutrophils Percent Auto 74.2 % (50-75); Platelet Count 234 X10^3/uL (150-400); Red Blood Cell Count 3.83 X10^6/uL (4.0-5.2); Red Cell Distribution Width 13.4 % (11.6-14.8); White Blood Cell Count 10.1 X10^3/uL (4.5-11.0)
[2021-11-16 14:24] LABS: Alanine Aminotransferase 26 IU/L (<35); Albumin 3.5 g/dL (3.5-5.0); Albumin Globulin Ratio 1.2 (1.0-2.8); Alkaline Phosphatase 65 U/L (38-126); Aspartate Aminotransferase 27 IU/L (14-36); BUN Creatinine Ratio 21.6 (6-22); Bilirubin Total 0.2 mg/dL (0.2-1.3); Blood Urea Nitrogen 8 mg/dL (7-17); Calcium 8.6 mg/dL (8.4-10.2); Carbon Dioxide 23 mmol/L (22-32); Chloride 103 mmol/L (98-107); Estimated Glomerular Filt Rate > 60 mL/min (>60); Glucose 94 mg/dL (70-100); HEMOLYSIS 15 (0-50); Potassium 3.8 mmol/L (3.4-5.1); Sodium 134 mmol/L (137-145); Total Protein 6.5 g/dL (6.3-8.2); Uric Acid 2.5 mg/dL (2.5-6.2)
[2021-11-16 16:15] LABS: Creatinine Urine Random 74.3 mg/dL; Protein (Total) Urine Random 5 mg/dL (0-12); Protein Creatinine Ratio Urine 0.06 GRAM/24H
== END ==
PROVIDERS: Family Provider Family Medicine; PCP Family Medicine; Referring Provider Family Medicine; Visit Provider Family Medicine
DX: Z34.80 Encounter for supervision of other normal pregnancy, unspecified trimester (principal); Z3A.23 23 weeks gestation of pregnancy; I10 Essential (primary) hypertension
CPT/HCPCS: 36415; 80053; 82570; 84156; 84550; 85025

== ENCOUNTER → 2021-12-10 12:02 | Outpatient (CLI) | payer OTHER, SELFPAY ==
[2021-12-10 12:58] LABS: Alanine Aminotransferase 26 IU/L (<35); Albumin 3.5 g/dL (3.5-5.0); Albumin Globulin Ratio 1.2 (1.0-2.8); Alkaline Phosphatase 88 U/L (38-126); Aspartate Aminotransferase 25 IU/L (14-36); BUN Creatinine Ratio 17.4 (6-22); Bilirubin Total 0.2 mg/dL (0.2-1.3); Blood Urea Nitrogen 8 mg/dL (7-17); Carbon Dioxide 26 mmol/L (22-32); Chloride 105 mmol/L (98-107); Estimated Glomerular Filt Rate > 60 mL/min (>60); Globulin 2.9 g/dL (1.7-4.1); Glucose 75 mg/dL (70-100); HEMOLYSIS < 15 (0-50); Potassium 4.1 mmol/L (3.4-5.1); Sodium 134 mmol/L (137-145); Total Protein 6.4 g/dL (6.3-8.2)
== END ==
PROVIDERS: Family Provider Family Medicine; PCP Family Medicine; Referring Provider Family Medicine; Visit Provider Family Medicine
DX: O14.90 Unspecified pre-eclampsia, unspecified trimester (principal)
CPT/HCPCS: 36415; 80053; 84550

== ENCOUNTER → 2021-12-11 08:06 | Outpatient (CLI) | payer OTHER, SELFPAY ==
[2021-12-11 09:55] LABS: Creatinine Urine Random 50.5 mg/dL; Protein (Total) Urine Random 14 mg/dL (0-12); Protein Creatinine Ratio Urine 0.27 GRAM/24H
[2021-12-11 10:01] LABS: Add Manual Diff / Slide Review NO; Basophils Absolute Auto 0 /uL (0-100); Basophils Percent Auto 0.3 % (0-2); Eosinophils Absolute Auto 100 /uL (0-450); Eosinophils Percent Auto 0.6 % (2-4); Hematocrit 34.8 % (36-46); Hemoglobin 11.8 g/dL (12.0-16.0); Lymphocytes Absolute Auto 1100 /uL (1100-4500); Lymphocytes Percent Auto 10.1 % (25-40); Mean Corpuscular HGB Conc 33.8 % (30-36); Mean Corpuscular Hemoglobin 30.2 PG (26-34); Mean Corpuscular Volume 89.3 fL (80-100); Monocytes Absolute Auto 800 /uL (0-900); Monocytes Percent Auto 6.9 % (3-14); Neutrophils Absolute Auto 9100 /uL (1500-7000); Neutrophils Percent Auto 82.1 % (50-75); Platelet Count 237 X10^3/uL (150-400); Red Cell Distribution Width 13.6 % (11.6-14.8); White Blood Cell Count 11.1 X10^3/uL (4.5-11.0)
[2021-12-11 10:25] LABS: Alanine Aminotransferase 22 IU/L (<35); Albumin 3.2 g/dL (3.5-5.0); Albumin Globulin Ratio 1.3 (1.0-2.8); Alkaline Phosphatase 82 U/L (38-126); Aspartate Aminotransferase 21 IU/L (14-36); BUN Creatinine Ratio 17.5 (6-22); Bilirubin Total 0.2 mg/dL (0.2-1.3); Blood Urea Nitrogen 7 mg/dL (7-17); Calcium 8.5 mg/dL (8.4-10.2); Carbon Dioxide 23 mmol/L (22-32); Chloride 106 mmol/L (98-107); Estimated Glomerular Filt Rate > 60 mL/min (>60); Globulin 2.5 g/dL (1.7-4.1); Glucose 91 mg/dL (70-100); HEMOLYSIS < 15 (0-50); Sodium 135 mmol/L (137-145); Total Protein 5.7 g/dL (6.3-8.2); Uric Acid 2.8 mg/dL (2.5-6.2)
[2021-12-11 10:27] LABS: GTT (PREG) 1 Hour PP 50gm Dose 95 mg/dL (76-139)
== END ==
PROVIDERS: Family Provider Family Medicine; PCP Family Medicine; Referring Provider Family Medicine; Visit Provider Family Medicine
DX: O14.90 Unspecified pre-eclampsia, unspecified trimester (principal); Z3A.26 26 weeks gestation of pregnancy
CPT/HCPCS: 36415; 80053; 82570; 82950; 84156; 84550; 85025

== ENCOUNTER → 2021-12-16 13:23 | Outpatient (CLI) | payer OTHER, SELFPAY ==
[2021-12-16 14:21] LABS: Add Manual Diff / Slide Review NO; Basophils Absolute Auto 0 /uL (0-100); Basophils Percent Auto 0.2 % (0-2); Eosinophils Absolute Auto 100 /uL (0-450); Hematocrit 33.8 % (36-46); Hemoglobin 11.7 g/dL (12.0-16.0); Lymphocytes Absolute Auto 1800 /uL (1100-4500); Lymphocytes Percent Auto 16.7 % (25-40); Mean Corpuscular HGB Conc 34.6 % (30-36); Mean Corpuscular Hemoglobin 30.8 PG (26-34); Mean Corpuscular Volume 88.9 fL (80-100); Monocytes Absolute Auto 700 /uL (0-900); Monocytes Percent Auto 6.3 % (3-14); Neutrophils Absolute Auto 8000 /uL (1500-7000); Neutrophils Percent Auto 75.8 % (50-75); Platelet Count 253 X10^3/uL (150-400); Red Cell Distribution Width 13.1 % (11.6-14.8); White Blood Cell Count 10.6 X10^3/uL (4.5-11.0)
[2021-12-16 14:34] LABS: Alanine Aminotransferase 25 IU/L (<35); Albumin 3.2 g/dL (3.5-5.0); Albumin Globulin Ratio 1.1 (1.0-2.8); Alkaline Phosphatase 90 U/L (38-126); Aspartate Aminotransferase 25 IU/L (14-36); BUN Creatinine Ratio 14.3 (6-22); Bilirubin Total 0.2 mg/dL (0.2-1.3); Blood Urea Nitrogen 7 mg/dL (7-17); Calcium 8.5 mg/dL (8.4-10.2); Carbon Dioxide 25 mmol/L (22-32); Chloride 106 mmol/L (98-107); Estimated Glomerular Filt Rate > 60 mL/min (>60); Globulin 2.9 g/dL (1.7-4.1); Glucose 97 mg/dL (70-100); HEMOLYSIS < 15 (0-50); Potassium 3.9 mmol/L (3.4-5.1); Sodium 135 mmol/L (137-145); Total Protein 6.1 g/dL (6.3-8.2)
[2021-12-16 15:23] LABS: Protein (Total) Urine Random 11 mg/dL (0-12)
== END ==
PROVIDERS: Family Provider Family Medicine; PCP Family Medicine; Referring Provider Family Medicine; Visit Provider Family Medicine
DX: O14.90 Unspecified pre-eclampsia, unspecified trimester (principal)
CPT/HCPCS: 36415; 80053; 82570; 84156; 84550; 85025

== ENCOUNTER → 2021-12-24 16:05 | Outpatient (CLI) | payer OTHER, SELFPAY ==
[2021-12-24 17:24] LABS: Add Manual Diff / Slide Review NO; Basophils Absolute Auto 0 /uL (0-100); Basophils Percent Auto 0.2 % (0-2); Eosinophils Absolute Auto 100 /uL (0-450); Eosinophils Percent Auto 0.7 % (2-4); Hematocrit 33.8 % (36-46); Hemoglobin 11.8 g/dL (12.0-16.0); Lymphocytes Absolute Auto 1700 /uL (1100-4500); Mean Corpuscular Hemoglobin 31.3 PG (26-34); Mean Corpuscular Volume 89.5 fL (80-100); Monocytes Absolute Auto 700 /uL (0-900); Neutrophils Absolute Auto 6900 /uL (1500-7000); Neutrophils Percent Auto 74.1 % (50-75); Platelet Count 231 X10^3/uL (150-400); Red Blood Cell Count 3.78 X10^6/uL (4.0-5.2); Red Cell Distribution Width 13.4 % (11.6-14.8); White Blood Cell Count 9.4 X10^3/uL (4.5-11.0)
[2021-12-24 17:29] LABS: Alanine Aminotransferase 24 IU/L (<35); Albumin 3.3 g/dL (3.5-5.0); Albumin Globulin Ratio 1.2 (1.0-2.8); Alkaline Phosphatase 93 U/L (38-126); Aspartate Aminotransferase 25 IU/L (14-36); BUN Creatinine Ratio 13.6 (6-22); Bilirubin Total 0.3 mg/dL (0.2-1.3); Blood Urea Nitrogen 6 mg/dL (7-17); Calcium 8.3 mg/dL (8.4-10.2); Carbon Dioxide 21 mmol/L (22-32); Chloride 107 mmol/L (98-107); Estimated Glomerular Filt Rate > 60 mL/min (>60); Globulin 2.8 g/dL (1.7-4.1); Glucose 102 mg/dL (70-100); HEMOLYSIS < 15 (0-50); Potassium 3.9 mmol/L (3.4-5.1); Sodium 136 mmol/L (137-145); Total Protein 6.1 g/dL (6.3-8.2); Uric Acid 2.9 mg/dL (2.5-6.2)
[2021-12-24 18:16] LABS: Creatinine Urine Random 37.1 mg/dL; Protein (Total) Urine Random 9 mg/dL (0-12); Protein Creatinine Ratio Urine 0.24 GRAM/24H
== END ==
PROVIDERS: Family Provider Family Medicine; PCP Family Medicine; Referring Provider Family Medicine; Visit Provider Family Medicine
DX: O14.90 Unspecified pre-eclampsia, unspecified trimester (principal)
CPT/HCPCS: 36415; 80053; 82570; 84156; 84550; 85025

== ENCOUNTER 2022-01-04 13:21 | Outpatient (CLI) | payer OTHER, SELFPAY ==
--- NOTE | 2022-01-04 13:53 | P.TNLD_ITS ---
Visit Information Visit Information Date of evaluation: 01/04/22 Primary OB Provider: Renae Thompson Reason for Evaluation: Yes non-stress test non-stress test reason: hypertension/pre-eclampsia Comments/Additional reasons for admission: 31yo at 31w5d here for NST for chronic HTN. No vaginal bleeding, LOF, contractions. No headaches, vision changes, RUQ pain. Swelling stable. [facility] Medical History Abnormal Pap smear of cervix (2009) Anxiety Asthma Bipolar disorder (2015) JOSE M I (cervical intraepithelial neoplasia I) Depression (2016) Essential hypertension History of allergy HPV (human papilloma virus) infection (2009) Surgical History (Updated 07/29/21 @ 11:50 by Asia Villagran RN) H/O dilation and curettage S/P cubital tunnel release (~2017) Family History Mother Age: 46 Hypertension Diabetes mellitus Hyperlipidemia Father Alcoholism Family/Other Stroke Arrhythmia CHAPARRO (obstructive sleep apnea) Social History marital status: unmarried,living together household members: significant other lives independently: Yes housing: house pets and animals: Yes (dogs) education level: college occupational status: employed 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 use: always water heater temp set < 120 deg: Yes working smoke detector in home: Yes fire extinguisher in home: Yes carbon monox detector in home: Yes firearms in home: Yes firearms unloaded and locked: Yes do you feel safe at home: Yes Smoking Status: Never smoker second hand exposure: No alcohol intake: former substance use type: does not use during the past year weight has: remained stable well-balanced diet: about half the time daily servings fruits/ve-1 caffeine: Yes (200mg) Type(s) of exercise: none Evaluation Evaluation Baseline heart rate: 135 Variability: Moderate (11-25) monitor accelerations: Present Monitor Decelerations: Absent Category of Tracing: Reactive Diagnosis, Plan/Disposition Final Diagnosis (1) Essential hypertension: Status: Acute (2) Encounter for supervision of other normal , unspecified trimester: Status: Acute Plan/Disposition Plan: 31yo at 31w5d here for NST for chronic HTN. BP in good range. Reactive NST. Getting weekly labs. Stable for d/c home. OB Disposition: home
== END 2022-01-04 13:58 | disposition home or self-care (01) ==
LOC: LABOR 14:02 → OB 01-06 14:25
PROVIDERS: Family Provider Family Medicine; PCP Family Medicine; Referring Provider Family Medicine; Visit Provider Family Medicine
DX: O10.013 Pre-existing essential hypertension complicating pregnancy, third trimester (principal); Z3A.31 31 weeks gestation of pregnancy
CPT/HCPCS: 59025; G0378; G0379

== ENCOUNTER 2022-01-07 13:31 | Outpatient (CLI) | payer OTHER, SELFPAY ==
--- NOTE | 2022-01-07 14:16 | PM.OBTRLD ---
Visit Information Visit Information Date of evaluation: 01/07/22 Primary OB Provider: Renae Thompson Reason for Evaluation: Yes non-stress test non-stress test reason: hypertension/pre-eclampsia Comments/Additional reasons for admission: 31yo at 32w1d here for NST for chronic HTN. Swelling has increased minimally. No vision changes, RUQ pain, headaches. Feeling baby move regularly. [facility] Medical History (Updated 01/07/22 @ 16:58 by Renae Thompson MD) Abnormal Pap smear of cervix (2009) Anxiety Asthma Bipolar disorder (2015) JOSE M I (cervical intraepithelial neoplasia I) Depression (2016) Essential hypertension History of allergy HPV (human papilloma virus) infection (2009) Surgical History (Updated 07/29/21 @ 11:50 by Asia Villagran RN) H/O dilation and curettage S/P cubital tunnel release (~2017) Family History Mother Age: 46 Hypertension Diabetes mellitus Hyperlipidemia Father Alcoholism Family/Other Stroke Arrhythmia CHAPARRO (obstructive sleep apnea) Social History marital status: unmarried,living together household members: significant other lives independently: Yes housing: house pets and animals: Yes (dogs) education level: college occupational status: employed 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: always water heater temp set < 120 deg: Yes working smoke detector in home: Yes fire extinguisher in home: Yes carbon monox detector in home: Yes firearms in home: Yes firearms unloaded and locked: Yes do you feel safe at home: Yes Smoking Status: Never smoker second hand exposure: No alcohol intake: former substance use type: does not use during the past year weight has: remained stable well-balanced diet: about half the time daily servings fruits/ve-1 caffeine: Yes (200mg) Type(s) of exercise: none Diagnosis, Plan/Disposition Final Diagnosis (1) Essential hypertension: Status: Acute (2) 31 weeks gestation of : Status: Acute Plan/Disposition Plan: 31yo at 32w1d here for NST for chronic HTN. NST reactive. Stable for d/c home. Pt will have weekly labs done today. OB Disposition: home
== END 2022-01-07 14:20 | disposition home or self-care (01) ==
LOC: LABOR 13:54 → OB 01-10 14:38
PROVIDERS: Family Provider Family Medicine; PCP Family Medicine; Referring Provider Family Medicine; Visit Provider Family Medicine
DX: O10.013 Pre-existing essential hypertension complicating pregnancy, third trimester (principal); Z3A.31 31 weeks gestation of pregnancy
CPT/HCPCS: 36415; 59025; 80053; 82570; 84156; 84550; 85025; G0378; G0379

== ENCOUNTER → 2022-01-07 14:21 | Outpatient (CLI) | payer OTHER, SELFPAY ==
[2022-01-07 14:53] LABS: Add Manual Diff / Slide Review NO; Basophils Absolute Auto 0 /uL (0-100); Basophils Percent Auto 0.2 % (0-2); Eosinophils Absolute Auto 100 /uL (0-450); Eosinophils Percent Auto 0.5 % (2-4); Lymphocytes Absolute Auto 1600 /uL (1100-4500); Lymphocytes Percent Auto 14.5 % (25-40); Mean Corpuscular HGB Conc 34.4 % (30-36); Mean Corpuscular Hemoglobin 30.7 PG (26-34); Mean Corpuscular Volume 89.2 fL (80-100); Monocytes Absolute Auto 800 /uL (0-900); Monocytes Percent Auto 7.8 % (3-14); Neutrophils Absolute Auto 8400 /uL (1500-7000); Platelet Count 235 X10^3/uL (150-400); Red Blood Cell Count 3.92 X10^6/uL (4.0-5.2); Red Cell Distribution Width 13.7 % (11.6-14.8); White Blood Cell Count 10.9 X10^3/uL (4.5-11.0)
[2022-01-07 14:55] LABS: Alanine Aminotransferase 23 IU/L (<35); Albumin 3.6 g/dL (3.5-5.0); Albumin Globulin Ratio 1.3 (1.0-2.8); Alkaline Phosphatase 107 U/L (38-126); Aspartate Aminotransferase 27 IU/L (14-36); BUN Creatinine Ratio 12.2 (6-22); Bilirubin Total 0.2 mg/dL (0.2-1.3); Blood Urea Nitrogen 6 mg/dL (7-17); Calcium 8.8 mg/dL (8.4-10.2); Carbon Dioxide 24 mmol/L (22-32); Chloride 103 mmol/L (98-107); Estimated Glomerular Filt Rate > 60 mL/min (>60); Globulin 2.8 g/dL (1.7-4.1); Glucose 83 mg/dL (70-100); HEMOLYSIS < 15 (0-50); Potassium 3.8 mmol/L (3.4-5.1); Sodium 134 mmol/L (137-145); Total Protein 6.4 g/dL (6.3-8.2); Uric Acid 3.2 mg/dL (2.5-6.2)
[2022-01-07 16:10] LABS: Protein (Total) Urine Random 6 mg/dL (0-12); Protein Creatinine Ratio Urine 0.05 GRAM/24H
== END ==
PROVIDERS: Family Provider Family Medicine; PCP Family Medicine; Referring Provider Family Medicine; Visit Provider Family Medicine
DX: O14.90 Unspecified pre-eclampsia, unspecified trimester (principal)
CPT/HCPCS: 36415; 80053; 82570; 84156; 84550; 85025

== ENCOUNTER 2022-01-11 13:22 | Outpatient (CLI) | payer OTHER, SELFPAY ==
--- NOTE | 2022-01-11 13:49 | PM.OBTRLD ---
Visit Information Visit Information Date of evaluation: 01/11/22 Primary OB Provider: Renae Thompson Reason for Evaluation: Yes non-stress test non-stress test reason: hypertension/pre-eclampsia Comments/Additional reasons for admission: 31yo at 32w5d here for NST for chronic HTN.? Swelling is stable.? No vision changes, RUQ pain, headaches.? Feeling baby move regularly. [facility] Medical History (Updated 01/07/22 @ 16:58 by Renae Thompson MD) Abnormal Pap smear of cervix (2009) Anxiety Asthma Bipolar disorder (2015) JOSE M I (cervical intraepithelial neoplasia I) Depression (2016) Essential hypertension History of allergy HPV (human papilloma virus) infection (2009) Surgical History (Updated 07/29/21 @ 11:50 by Asia Villagran RN) H/O dilation and curettage S/P cubital tunnel release (~2018) Family History Mother Age: 46 Hypertension Diabetes mellitus Hyperlipidemia Father Alcoholism Family/Other Stroke Arrhythmia CHAPARRO (obstructive sleep apnea) Social History marital status: unmarried,living together household members: significant other lives independently: Yes housing: house pets and animals: Yes (dogs) education level: college occupational status: employed 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 use: always water heater temp set < 120 deg: Yes working smoke detector in home: Yes fire extinguisher in home: Yes carbon monox detector in home: Yes firearms in home: Yes firearms unloaded and locked: Yes do you feel safe at home: Yes Smoking Status: Never smoker second hand exposure: No alcohol intake: former substance use type: does not use during the past year weight has: remained stable well-balanced diet: about half the time daily servings fruits/ve-1 caffeine: Yes (200mg) Type(s) of exercise: none Evaluation Evaluation Baseline heart rate: 150 Variability: Moderate (11-25) monitor accelerations: Present Monitor Decelerations: Absent Category of Tracing: Reactive Diagnosis, Plan/Disposition Final Diagnosis (1) 31 weeks gestation of : Status: Acute (2) Essential hypertension: Status: Acute Plan/Disposition Plan: 31yo at 32w5d here for NST for chronic HTN. NST reactive. Stable for d/c home. OB Disposition: home
== END 2022-01-11 14:05 | disposition home or self-care (01) ==
LOC: LABOR 14:08 → OB 01-13 08:25
PROVIDERS: Family Provider Family Medicine; PCP Family Medicine; Referring Provider Family Medicine; Visit Provider Family Medicine
DX: O10.013 Pre-existing essential hypertension complicating pregnancy, third trimester (principal); Z3A.31 31 weeks gestation of pregnancy
CPT/HCPCS: 59025; G0378; G0379

== ENCOUNTER → 2022-01-14 12:49 | Outpatient (CLI) | payer OTHER, SELFPAY ==
[2022-01-14 13:56] LABS: Protein (Total) Urine Random 14 mg/dL (0-12); Protein Creatinine Ratio Urine 0.63 GRAM/24H
[2022-01-14 14:10] LABS: Add Manual Diff / Slide Review NO; Basophils Absolute Auto 0 /uL (0-100); Basophils Percent Auto 0.1 % (0-2); Eosinophils Absolute Auto 100 /uL (0-450); Eosinophils Percent Auto 0.6 % (2-4); Hematocrit 35.3 % (36-46); Hemoglobin 12.1 g/dL (12.0-16.0); Lymphocytes Absolute Auto 1700 /uL (1100-4500); Lymphocytes Percent Auto 16.2 % (25-40); Mean Corpuscular HGB Conc 34.3 % (30-36); Mean Corpuscular Hemoglobin 30.9 PG (26-34); Monocytes Absolute Auto 800 /uL (0-900); Monocytes Percent Auto 7.3 % (3-14); Neutrophils Absolute Auto 7900 /uL (1500-7000); Neutrophils Percent Auto 75.8 % (50-75); Platelet Count 267 X10^3/uL (150-400); Red Blood Cell Count 3.92 X10^6/uL (4.0-5.2); Red Cell Distribution Width 13.4 % (11.6-14.8); White Blood Cell Count 10.4 X10^3/uL (4.5-11.0)
[2022-01-14 14:29] LABS: Alanine Aminotransferase 19 IU/L (<35); Albumin 3.4 g/dL (3.5-5.0); Albumin Globulin Ratio 1.3 (1.0-2.8); Alkaline Phosphatase 109 U/L (38-126); Aspartate Aminotransferase 24 IU/L (14-36); BUN Creatinine Ratio 11.1 (6-22); Bilirubin Total 0.2 mg/dL (0.2-1.3); Blood Urea Nitrogen 5 mg/dL (7-17); Calcium 8.7 mg/dL (8.4-10.2); Carbon Dioxide 23 mmol/L (22-32); Chloride 107 mmol/L (98-107); Estimated Glomerular Filt Rate > 60 mL/min (>60); Globulin 2.7 g/dL (1.7-4.1); Glucose 91 mg/dL (70-100); HEMOLYSIS < 15 (0-50); Sodium 136 mmol/L (137-145); Total Protein 6.1 g/dL (6.3-8.2); Uric Acid 3.5 mg/dL (2.5-6.2)
== END ==
PROVIDERS: Family Provider Family Medicine; PCP Family Medicine; Referring Provider Family Medicine; Visit Provider Family Medicine
DX: O14.90 Unspecified pre-eclampsia, unspecified trimester (principal)
CPT/HCPCS: 36415; 80053; 82570; 84156; 84550; 85025

== ENCOUNTER 2022-01-14 13:01 | Outpatient (CLI) | payer OTHER, SELFPAY ==
--- NOTE | 2022-01-14 13:46 | PM.OBTRLD ---
Visit Information Visit Information Date of evaluation: 01/14/22 Primary OB Provider: Renae Thompson Reason for Evaluation: Yes non-stress test non-stress test reason: hypertension/pre-eclampsia Comments/Additional reasons for admission: 31yo at 33w1d here for NST for chronic HTN.? Swelling is stable.? No vision changes, RUQ pain, headaches.? Feeling baby move regularly. [facility], [facility] Medical History (Updated 01/14/22 @ 13:55 by Renae Thompson MD) Abnormal Pap smear of cervix (2009) Anxiety Asthma Bipolar disorder (2015) JOSE M I (cervical intraepithelial neoplasia I) Depression (2016) Essential hypertension History of allergy HPV (human papilloma virus) infection (2009) Surgical History (Updated 07/29/21 @ 11:50 by Asia Villagran RN) H/O dilation and curettage S/P cubital tunnel release (~2018) Family History Mother Age: 46 Hypertension Diabetes mellitus Hyperlipidemia Father Alcoholism Family/Other Stroke Arrhythmia CHAPARRO (obstructive sleep apnea) Social History marital status: unmarried,living together household members: significant other lives independently: Yes housing: house pets and animals: Yes (dogs) education level: college occupational status: employed 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) 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 use: always water heater temp set < 120 deg: Yes working smoke detector in home: Yes fire extinguisher in home: Yes carbon monox detector in home: Yes firearms in home: Yes firearms unloaded and locked: Yes do you feel safe at home: Yes Smoking Status: Never smoker second hand exposure: No alcohol intake: former substance use type: does not use during the past year weight has: remained stable well-balanced diet: about half the time daily servings fruits/ve-1 caffeine: Yes (200mg) Type(s) of exercise: none Evaluation Evaluation Baseline heart rate: 140 Variability: Moderate (11-25) monitor accelerations: Present Monitor Decelerations: Absent Category of Tracing: Reactive Diagnosis, Plan/Disposition Final Diagnosis (1) Essential hypertension: Status: Acute (2) 33 weeks gestation of : Status: Acute Plan/Disposition Plan: 31yo at 32w5d here for NST for chronic HTN.? NST reactive. Pt will have weekly labs drawn today. Continue twice weekly NSTs. OB Disposition: home
== END 2022-01-14 13:55 | disposition home or self-care (01) ==
LOC: LABOR 13:48 → OB 02-03 08:09
PROVIDERS: Family Provider Family Medicine; PCP Family Medicine; Referring Provider Family Medicine; Visit Provider Family Medicine
DX: O10.013 Pre-existing essential hypertension complicating pregnancy, third trimester (principal); Z3A.33 33 weeks gestation of pregnancy
CPT/HCPCS: 36415; 59025; 80053; 82570; 84156; 84550; 85025; G0378; G0379

== ENCOUNTER 2022-01-15 09:07 | Outpatient (CLI) | payer OTHER, SELFPAY ==
[2022-01-15] MEDS: BETAMETHASONE 30 MG/5 ML MDV 12 MG IM (09:27)
--- NOTE | 2022-01-15 09:34 | PC.NURSE ---
pt her for 1st dose of BTMZ will return tomorrow AM for next dose-education on surfactant production done with pt and support person (mom)
== END 2022-01-15 09:30 | disposition home or self-care (01) ==
LOC: LABOR 09:10 → OB 02-03 08:10
PROVIDERS: Family Provider Family Medicine; PCP Family Medicine; Referring Provider Family Medicine; Visit Provider Family Medicine
DX: O42.913 Preterm premature rupture of membranes, unspecified as to length of time between rupture and onset of labor, third trimester (principal); O46.93 Antepartum hemorrhage, unspecified, third trimester; Z3A.34 34 weeks gestation of pregnancy
CPT/HCPCS: 96372; G0378; G0379; J0702

== ENCOUNTER 2022-01-16 09:04 | Outpatient (CLI) | payer OTHER, SELFPAY ==
[2022-01-16] MEDS: BETAMETHASONE 30 MG/5 ML MDV 12 MG IM (09:21)
== END 2022-01-16 09:28 | disposition home or self-care (01) ==
LOC: LABOR 09:06 → OB 01-17 09:06
PROVIDERS: Family Provider Family Medicine; PCP Family Medicine; Referring Provider Family Medicine; Visit Provider Family Medicine
DX: O11.3 Pre-existing hypertension with pre-eclampsia, third trimester (principal); O10.913 Unspecified pre-existing hypertension complicating pregnancy, third trimester; Z3A.33 33 weeks gestation of pregnancy
CPT/HCPCS: 96372; G0378; G0379; J0702

== ENCOUNTER 2022-01-18 13:25 | Outpatient (CLI) | payer OTHER, SELFPAY ==
--- NOTE | 2022-01-18 14:01 | PM.OBTRLD ---
Visit Information Visit Information Date of evaluation: 01/18/22 Primary OB Provider: Renae Thompson On-call OB Provider: Jose Summers Reason for Evaluation: Yes non-stress test Comments/Additional reasons for admission: NST for chronic hypertension on 300 mg PO BID, 33+5 weeks EGA. Denies GASTON/blurred vision, RUQ pain Vital Signs Vital Signs: 133/81 (Consistent with crecent baseline BP's) [facility] Medical History (Updated 01/18/22 @ 14:06 by Jose Summers MD) Abnormal Pap smear of cervix (2009) Anxiety Asthma Bipolar disorder (2015) JOSE M I (cervical intraepithelial neoplasia I) Depression (2016) Essential hypertension History of allergy HPV (human papilloma virus) infection (2009) Surgical History (Updated 07/29/21 @ 11:50 by Asia Villagran RN) H/O dilation and curettage S/P cubital tunnel release (~2017) Family History Mother Age: 46 Hypertension Diabetes mellitus Hyperlipidemia Father Alcoholism Family/Other Stroke Arrhythmia CHAPARRO (obstructive sleep apnea) Social History marital status: unmarried,living together household members: significant other lives independently: Yes housing: house pets and animals: Yes (dogs) education level: college occupational status: employed 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 use: always water heater temp set < 120 deg: Yes working smoke detector in home: Yes fire extinguisher in home: Yes carbon monox detector in home: Yes firearms in home: Yes firearms unloaded and locked: Yes do you feel safe at home: Yes Smoking Status: Never smoker second hand exposure: No alcohol intake: former substance use type: does not use during the past year weight has: remained stable well-balanced diet: about half the time daily servings fruits/ve-1 caffeine: Yes (200mg) Type(s) of exercise: none Evaluation Evaluation Baseline heart rate: 135 Variability: Average (6-10) monitor accelerations: Present Monitor Decelerations: Absent Category of Tracing: Reactive Status: Category l Diagnosis, Plan/Disposition Final Diagnosis (1) Essential hypertension: Status: Acute Problem details: Controlled w/ labetalol 300 mg BID (2) 33 weeks gestation of : Status: Acute Plan/Disposition Plan: Continue weekly NST's and close observation for severe features/transition to pre-eclampsia OB Disposition: home
== END 2022-01-18 14:00 | disposition home or self-care (01) ==
LOC: LABOR 14:07 → OB 01-19 11:37
PROVIDERS: Family Provider Family Medicine; PCP Family Medicine; Referring Provider Family Medicine; Visit Provider Family Medicine
DX: O10.013 Pre-existing essential hypertension complicating pregnancy, third trimester (principal); Z3A.33 33 weeks gestation of pregnancy
CPT/HCPCS: 59025; G0378; G0379

== ENCOUNTER → 2022-01-20 15:02 | Outpatient (CLI) | payer OTHER, SELFPAY ==
[2022-01-20 16:00] LABS: Add Manual Diff / Slide Review NO; Basophils Absolute Auto 0 /uL (0-100); Basophils Percent Auto 0.2 % (0-2); Eosinophils Absolute Auto 100 /uL (0-450); Eosinophils Percent Auto 0.8 % (2-4); Hematocrit 35.6 % (36-46); Lymphocytes Absolute Auto 2300 /uL (1100-4500); Lymphocytes Percent Auto 16.6 % (25-40); Mean Corpuscular HGB Conc 33.6 % (30-36); Mean Corpuscular Hemoglobin 30.3 PG (26-34); Mean Corpuscular Volume 90.3 fL (80-100); Monocytes Absolute Auto 1000 /uL (0-900); Neutrophils Absolute Auto 10300 /uL (1500-7000); Neutrophils Percent Auto 75.4 % (50-75); Platelet Count 272 X10^3/uL (150-400); Red Blood Cell Count 3.95 X10^6/uL (4.0-5.2); Red Cell Distribution Width 13.3 % (11.6-14.8); White Blood Cell Count 13.7 X10^3/uL (4.5-11.0)
[2022-01-20 17:48] LABS: Creatinine Urine Random 52.6 mg/dL; Protein (Total) Urine Random 9 mg/dL (0-12); Protein Creatinine Ratio Urine 0.17 GRAM/24H
[2022-01-20 21:03] LABS: Alanine Aminotransferase 18 IU/L (<35); Albumin 3.4 g/dL (3.5-5.0); Albumin Globulin Ratio 1.2 (1.0-2.8); Alkaline Phosphatase 106 U/L (38-126); Aspartate Aminotransferase 21 IU/L (14-36); BUN Creatinine Ratio 21.7 (6-22); Bilirubin Total < 0.1 mg/dL (0.2-1.3); Blood Urea Nitrogen 10 mg/dL (7-17); Calcium 8.7 mg/dL (8.4-10.2); Carbon Dioxide 23 mmol/L (22-32); Chloride 102 mmol/L (98-107); Estimated Glomerular Filt Rate > 60 mL/min (>60); Globulin 2.8 g/dL (1.7-4.1); Glucose 81 mg/dL (70-100); HEMOLYSIS < 15 (0-50); Potassium 4.1 mmol/L (3.4-5.1); Sodium 132 mmol/L (137-145); Total Protein 6.2 g/dL (6.3-8.2); Uric Acid 3.6 mg/dL (2.5-6.2)
== END ==
PROVIDERS: Family Provider Family Medicine; PCP Family Medicine; Referring Provider Family Medicine; Visit Provider Family Medicine
DX: O14.93 Unspecified pre-eclampsia, third trimester (principal); Z3A.34 34 weeks gestation of pregnancy
CPT/HCPCS: 36415; 80053; 82570; 84156; 84550; 85025

== ENCOUNTER 2022-01-21 13:22 | Outpatient (CLI) | payer OTHER, SELFPAY ==
--- NOTE | 2022-01-21 14:00 | P.TNLD_ITS ---
Visit Information Visit Information Date of evaluation: 01/21/22 Primary OB Provider: Renae Thompson Reason for Evaluation: Yes non-stress test non-stress test reason: hypertension/pre-eclampsia Comments/Additional reasons for admission: 31yo at 34w1d here for NST for chronic HTN. No vision changes, RUQ pain, headaches, new swelling. Pt has been overall feeling well. [facility] Medical History (Updated 01/24/22 @ 08:13 by Renae Thompson MD) Abnormal Pap smear of cervix (2009) Anxiety Asthma Bipolar disorder (2015) JOSE M I (cervical intraepithelial neoplasia I) Depression (2016) Essential hypertension History of allergy HPV (human papilloma virus) infection (2009) Surgical History (Updated 07/29/21 @ 11:50 by Asia Villagran RN) H/O dilation and curettage S/P cubital tunnel release (~2017) Family History Mother Age: 46 Hypertension Diabetes mellitus Hyperlipidemia Father Alcoholism Family/Other Stroke Arrhythmia CHAPARRO (obstructive sleep apnea) Social History marital status: unmarried,living together household members: significant other lives independently: Yes housing: house pets and animals: Yes (dogs) education level: college occupational status: employed 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 use: always water heater temp set < 120 deg: Yes working smoke detector in home: Yes fire extinguisher in home: Yes carbon monox detector in home: Yes firearms in home: Yes firearms unloaded and locked: Yes do you feel safe at home: Yes Smoking Status: Never smoker second hand exposure: No alcohol intake: former substance use type: does not use during the past year weight has: remained stable well-balanced diet: about half the time daily servings fruits/ve-1 caffeine: Yes (200mg) Type(s) of exercise: none Evaluation Evaluation Baseline heart rate: 130 Variability: Moderate (11-25) monitor accelerations: Present Monitor Decelerations: Absent Category of Tracing: Reactive Diagnosis, Plan/Disposition Final Diagnosis (1) Essential hypertension: Status: Acute Problem details: Controlled w/ labetalol 300 mg BID (2) 34 weeks gestation of : Status: Acute Plan/Disposition Plan: 31yo at 34w1d here for NST for chronic HTN. BP excellent range today. NST reactive. Continue testing, close monitoring BPs at home. OB Disposition: home
== END 2022-01-21 14:05 | disposition home or self-care (01) ==
LOC: LABOR 13:32 → OB 01-24 12:53
PROVIDERS: Family Provider Family Medicine; PCP Family Medicine; Referring Provider Family Medicine; Visit Provider Family Medicine
DX: O10.013 Pre-existing essential hypertension complicating pregnancy, third trimester (principal); Z3A.34 34 weeks gestation of pregnancy
CPT/HCPCS: 59025; G0378; G0379

== ENCOUNTER 2022-01-22 12:53 | Outpatient (CLI) | payer OTHER, SELFPAY ==
[2022-01-23 07:39] LABS: Strep Grp B PCR NEG for Grp B Strep
== END 2022-01-22 13:55 | disposition home or self-care (01) ==
LOC: OB 01-24 12:51
PROVIDERS: Obstetrics & Gynecology; Family Provider Family Medicine; PCP Family Medicine; Referring Provider Family Medicine; Visit Provider Family Medicine
DX: O42.913 Preterm premature rupture of membranes, unspecified as to length of time between rupture and onset of labor, third trimester (principal); O46.93 Antepartum hemorrhage, unspecified, third trimester; Z3A.34 34 weeks gestation of pregnancy
CPT/HCPCS: 59025; 84112; 87653; G0378; G0379

== ENCOUNTER 2022-01-26 07:13 | Inpatient (IN) | payer OTHER, SELFPAY ==
--- NOTE | 2022-01-26 07:49 | PM.HP.1 ---
History of Present Illness History of Present Illness Date Patient Seen: 01/26/22 Time Patient Seen: 07:30 Chief complaint: labor Narrative: Pt is a 31yo at 34w6d who presented with regular cramping. The pt reports waking around 1:30am due to painful cramping. Since then, it has increased in frequency. The pain is primarily in her lower abdomen. She has not been timing it, but states it happens around every 5 minutes, and lasts for around 30 seconds. She started having some vaginal spotting with stringy mucus around 4:30am. She states that she continues to have persistent clear discharge, but this is unchanged from when she was seen in L&D over the weekend with rule-out rupture. Patient History Medical History (Updated 01/24/22 @ 08:13 by Renae Thompson MD) Abnormal Pap smear of cervix (2009) Anxiety Asthma Bipolar disorder (2015) JOSE M I (cervical intraepithelial neoplasia I) Depression (2015) Essential hypertension History of allergy HPV (human papilloma virus) infection (2009) Surgical History (Updated 07/29/21 @ 11:50 by Asia Villagran RN) H/O dilation and curettage S/P cubital tunnel release (~2018) Family & Social History Family History Mother Age: 46 Hypertension Diabetes mellitus Hyperlipidemia Father Alcoholism Family/Other Stroke Arrhythmia CHAPARRO (obstructive sleep apnea) Social History: household members significant other lives independently Yes Tobacco & Substance use: Smoking Status Never smoker alcohol intake former alcohol intake frequency 0-2 drinks per day Substance Use Type does not use Meds Home Medications and Allergies Home Medications Medication Instructions Recorded Confirmed Type albuterol sulfate 90 mcg/actuation 2 puff inhalation Q4-6H PRN 05/28/19 01/25/22 Rx aerosol inhaler bronchospasm #8.5 grams hydroxyzine HCl 25 mg tablet See Rx Instructions .Route 05/03/21 01/25/22 Rx .COMPLEX #60 tabs escitalopram oxalate 5 mg tablet See Rx Instructions .Route 07/05/21 01/25/22 Rx .COMPLEX #90 tabs labetalol 300 mg tablet 300 mg PO BID #180 tabs 10/04/21 01/25/22 Rx nifedipine 60 mg tablet,extended 60 mg PO DAILY #30 tabs 11/16/21 01/25/22 Rx release Allergies Allergy/AdvReac Type Severity Reaction Status Date / Time avocado [AVOCADO] Allergy Unknown Verified 01/25/22 14:53 banana [BANANA] Allergy Unknown Verified 01/25/22 14:53 egg [EGG] Allergy Unknown Verified 01/25/22 14:53 Objective Labs Result Diagrams: 01/26/22 08:01 01/26/22 08:23 Assessment & Plan Time Spent With Patient Critical Care time: I spent a total of [] minutes of critical care time on this patient's care today; this time is exclusive of procedural time.
[2022-01-26] MEDS: LACTATED RINGERS 1,000 ML 1000 ML IV (08:00)
[2022-01-26] MEDS: NIFEdipine 30 MG TAB ER 60 MG PO (08:17)
[2022-01-26] MEDS: NIFEdipine 10 MG CAPSULE PO ×8 (08:21→14:48)
[2022-01-26 08:33] LABS: Add Manual Diff / Slide Review NO; Basophils Absolute Auto 0 /uL (0-100); Basophils Percent Auto 0.2 % (0-2); Eosinophils Absolute Auto 0 /uL (0-450); Eosinophils Percent Auto 0.2 % (2-4); Hematocrit 34.1 % (36-46); Hemoglobin 11.8 g/dL (12.0-16.0); Lymphocytes Absolute Auto 1700 /uL (1100-4500); Lymphocytes Percent Auto 10.8 % (25-40); Mean Corpuscular HGB Conc 34.5 % (30-36); Mean Corpuscular Hemoglobin 30.5 PG (26-34); Mean Corpuscular Volume 88.2 fL (80-100); Monocytes Absolute Auto 1000 /uL (0-900); Monocytes Percent Auto 6.5 % (3-14); Neutrophils Absolute Auto 13000 /uL (1500-7000); Neutrophils Percent Auto 82.3 % (50-75); Platelet Count 277 X10^3/uL (150-400); Red Blood Cell Count 3.86 X10^6/uL (4.0-5.2); Red Cell Distribution Width 13.2 % (11.6-14.8); White Blood Cell Count 15.8 X10^3/uL (4.5-11.0)
[2022-01-26 08:41] LABS: Alanine Aminotransferase 18 IU/L (<35); Albumin 3.4 g/dL (3.5-5.0); Albumin Globulin Ratio 1.2 (1.0-2.8); Alkaline Phosphatase 127 U/L (38-126); Aspartate Aminotransferase 19 IU/L (14-36); Bilirubin Total 0.2 mg/dL (0.2-1.3); Blood Urea Nitrogen 6 mg/dL (7-17); Calcium 8.8 mg/dL (8.4-10.2); Carbon Dioxide 24 mmol/L (22-32); Chloride 104 mmol/L (98-107); Estimated Glomerular Filt Rate > 60 mL/min (>60); Globulin 2.9 g/dL (1.7-4.1); Glucose 110 mg/dL (70-100); HEMOLYSIS < 15 (0-50); Potassium 3.7 mmol/L (3.4-5.1); Sodium 133 mmol/L (137-145); Total Protein 6.3 g/dL (6.3-8.2); Uric Acid 3.4 mg/dL (2.5-6.2)
[2022-01-26 09:15] LABS: Magnesium 1.6 mg/dL (1.6-2.3)
[2022-01-26 09:32] LABS: COVID19 -Nasal RAPID Negative (Negative)
[2022-01-26 11:12] LABS: Appearance Urine UA CLEAR; Bilirubin Urine UA NEGATIVE (NEGATIVE); Color Urine UA YELLOW; Glucose Urine UA TRACE g/dL (Negative); Ketones Urine UA TRACE (NEGATIVE); Leukocyte Esterase Urine UA NEGATIVE (NEGATIVE); Nitrite Urine UA NEGATIVE (Negative); Occult Blood Urine UA TRACE-LYSED (Negative); Protein Urine UA TRACE (Negative); Urobilinogen Urine UA 0.2 E.U./dL (0.2)
[2022-01-26 11:24] LABS: Bacteria Urine Many (>30); RBC Urine 0-1/HPF (0-5/HPF); Squamous Epithelial Cell Urine 10-30 /HPF (0-5/HPF); WBC Urine 5-10/HPF (0-5/HPF)
[2022-01-26 12:38] LABS: Creatinine Urine Random 119.3 mg/dL; Protein (Total) Urine Random 5 mg/dL (0-12); Protein Creatinine Ratio Urine 0.04 GRAM/24H
--- NOTE | 2022-01-26 14:26 | DI.US.S_ITS ---
PROCEDURE: US OB FOLLOW UP INDICATIONS: growth, INDIGO OUTSIDE/PRIOR DATING DATA: Last menstrual period (LMP): 05/27/2021. LMP-based estimated date of delivery (DAMASO): 03/03/2022. First dating scan (date and location): Performed at outside facility.. The calculations are made using the ultrasound DAMASO of 03/03/2022. TECHNIQUE: Real-time scanning was performed of the fetus, with image documentation. COMPARISON: None. FINDINGS: A single living intrauterine gestation is present. Presentation: Vertex. Placenta: Placental position is posterior, without previa. Amniotic fluid index: 18.3 cm, normal range is 5-24 cm. Single deepest vertical pocket is 5.8 cm. heart rate: 140 beats per minute. Maternal cervical canal: Not visualized. Clinically estimated gestational age: 34 weeks 6 days Estimated gestational age from today's scan: 33 weeks 3 days. Estimated weight 2215 g. 14th percentile. Maternal anatomy. Both ovaries are visualized and have a normal appearance. Anatomic survey: Neuro: Not well visualized due to low position. Nuchal skin fold: Not well visualized due to low position. Face: Not well visualized due to low position. Spine: Not well visualized due to low position. Heart: 4-chambered heart is present, with normal ventricular outflow tracts. Stomach: Left-sided stomach is present. Kidneys: No hydronephrosis. Normal is less than 4 mm in 2nd trimester, less than 7 mm in 3rd trimester. Bladder: Normal in size. IMPRESSION: 1. Single live intrauterine with a estimated gestational age of 33 weeks 3 days from today's scan. 2. Estimated weight 2215 g, 14th percentile. 3. Anatomy is suboptimally visualized, especially the head, visualized anatomy is within normal limits. Dictated by: Zacarias Hernadez M.D. on 01/26/2022 at 16:37 Approved by: Zacarias Hernadez M.D. on 01/26/2022 at 16:42
--- NOTE | 2022-01-26 14:55 | P.HPOB_ITS ---
OB HPI Date/Time Date of admission: 01/26/22 Date Patient Seen: 01/26/22 Time Patient Seen: 07:30 History of Present Condition Chief complaint: labor DAMASO Calculator Estimated Delivery Date Method Current WG Current Estimate 03/03/22 Manual 34w 6d Final DAMASO - SHIKHA Other Estimates 02/27/22 LMP (Uncertain) 35w 3d 03/16/22 Ultrasound #1 33w 0d 03/03/22 Ultrasound #2 34w 6d Estimated Gestational Age (weeks): 34w6d : 3 Para: 0 Narrative: Pt is a 31yo at 34w6d who presented with regular cramping. The pt reports waking around 1:30am due to painful cramping. Since then, it has increased in frequency. The pain is primarily in her lower abdomen. She has not been timing it, but states it happens around every 5 minutes, and lasts for around 30 seconds. She started having some vaginal spotting with stringy mucus around 4:30am. She states that she continues to have persistent clear discharge, but this is unchanged from when she was seen in L&D over the weekend with negative rule-out rupture. She continues to feel her baby move regularly. The pts has been complicated by chronic HTN with initially difficult to control BPs. She was being co-managed by [facility]. She is currently taking 60mg Nifedipine ER, 100mg Labetalol BID, and 75mg Atenolol daily. She had been weaning from Labetalol as per MFM recommendations, transitioning to Atenolol, however her BPs did not tolerate complete cessation of Labetalol. The pts BPs more recently have been in good range. She has been having weekly labs completed as well as twice weekly NSTs, which have thus far been reassuring. She did receive Betamethasone on 01/15 and 01/16 when her protein-creatinine elevated, however subsequent levels have been normal and [facility] did not recommend diagnosing with pre-eclampsia. The pts is also complicated by depression, with her mood stable on 5mg Lexapro daily. Her anatomy ultrasound did also show a uterine synechiae. care: good care, initiated at week # and pounds weight gain Dating criteria OB: based on 2nd trimester US only Ultrasounds: normal 1st trimester US Preadmission Labs Last OB Lab Results: Blood Type A Positive 08/02/21 11:16 Antibody Screen Negative 08/02/21 11:16 Hematocrit 34.1 % (36-46) L 01/26/22 08:01 Hemoglobin 11.8 g/dL (12.0-16.0) L 01/26/22 08:01 Hepatitis B Surface Antigen Negative s/c (NEGATIVE) 08/02/21 11 :16 Hepatitis C Antibody Negative s/c (NEGATIVE) 08/02/21 11:16 Rubella Antibody 170.0 IU/mL (>15) 08/02/21 11:16 Varicella-Zoster IgG Antibody 1253 index (Immune >165) 08/02/21 11:16 Glucose 1 Hour 95 mg/dL (76-139) 12/11/21 09:30 Group B Streptococcus (PCR) Neg for grp b strep 01/22/22 13:15 -: Urine: negative Genetic Screens: Cell-free DNA: Normal External Labs -: Urine: negative Prior (ies) Past Pregnancies Del. Date GA/Weeks Labor Lgth Wt Sex Route Outcome Anesthesia Place Delv Breastfeed Preg Comp Name 02/22/17 12 spontaneous Delivery Date: 02/22/17 Last Updated by: Asia Villagran, RDanielaN. D & C Evaluation Evaluation Baseline heart rate: 130 Variability: Moderate (11-25) monitor accelerations: Present Monitor Decelerations: Absent Status: Category l Dilation (cm): 5 Effacement (%): 100 station: 0 PFSH Medical History (Updated 01/24/22 @ 08:13 by Renae Thompson MD) Abnormal Pap smear of cervix (2009) Anxiety Asthma Bipolar disorder (2015) JOSE M I (cervical intraepithelial neoplasia I) Depression (2015) Essential hypertension History of allergy HPV (human papilloma virus) infection (2009) Surgical History (Updated 07/29/21 @ 11:50 by Asia Villagran RN) H/O dilation and curettage S/P cubital tunnel release (~2018) Family History Mother Age: 46 Hypertension Diabetes mellitus Hyperlipidemia Father Alcoholism Family/Other Stroke Arrhythmia CHAPARRO (obstructive sleep apnea) Social History marital status: unmarried,living together household members: significant other lives independently: Yes housing: house pets and animals: Yes (dogs) education level: college occupational status: employed 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 water heater temp set < 120 deg: Yes working smoke detector in home: Yes fire extinguisher in home: Yes carbon monox detector in home: Yes firearms in home: Yes firearms unloaded and locked: Yes do you feel safe at home: Yes Smoking Status: Never smoker second hand exposure: No alcohol intake: former substance use type: does not use during the past year weight has: remained stable well-balanced diet: about half the time daily servings fruits/ve-1 caffeine: Yes (200mg) Type(s) of exercise: none Meds Home Medications and Allergies Home Medications Medication Instructions Recorded Confirmed Type albuterol sulfate 90 mcg/actuation 2 puff inhalation Q4-6H PRN 05/28/19 01/25/22 Rx aerosol inhaler bronchospasm #8.5 grams hydroxyzine HCl 25 mg tablet See Rx Instructions .Route 05/03/21 01/25/22 Rx .COMPLEX #60 tabs escitalopram oxalate 5 mg tablet See Rx Instructions .Route 07/05/21 01/25/22 Rx .COMPLEX #90 tabs labetalol 300 mg tablet 300 mg PO BID #180 tabs 10/04/21 01/25/22 Rx nifedipine 60 mg tablet,extended 60 mg PO DAILY #30 tabs 11/16/21 01/25/22 Rx release Allergies Allergy/AdvReac Type Severity Reaction Status Date / Time avocado [AVOCADO] Allergy Unknown Verified 01/25/22 14:53 banana [BANANA] Allergy Unknown Verified 01/25/22 14:53 egg [EGG] Allergy Unknown Verified 01/25/22 14:53 OB Exam Narrative Exam Narrative: Gen: NAD, sitting comfortably in bed, appears well CV: RRR, no murmurs Resp: clear to auscultation bilaterally Abd: soft, nontender, gravid Ext: no edema Objective Labs Result Diagrams: 01/26/22 08:01 01/26/22 08:23 Labs: Laboratory Results - last 24 hr 01/26/22 01/26/22 01/26/22 07:49 07:49 08:01 WBC Cancelled 15.8 H RBC Cancelled 3.86 L Hgb Cancelled 11.8 L Hct Cancelled 34.1 L MCV Cancelled 88.2 MCH Cancelled 30.5 MCHC Cancelled 34.5 RDW Cancelled 13.2 Plt Count Cancelled 277 Neut % (Auto) Cancelled 82.3 H Lymph % (Auto) Cancelled 10.8 L [place] % (Auto) Cancelled 6.5 Eos % (Auto) Cancelled 0.2 L Baso % (Auto) Cancelled 0.2 Neut # (Auto) Cancelled 49788 H Lymph # (Auto) Cancelled 1700 [place] # (Auto) Cancelled 1000 H Eos # (Auto) Cancelled 0 Baso # (Auto) Cancelled 0 Sodium Potassium Chloride Carbon Dioxide BUN Cancelled Creatinine Cancelled Estimated GFR Cancelled BUN/Creatinine Ratio Cancelled Glucose Uric Acid Cancelled Calcium Magnesium Total Bilirubin AST Cancelled ALT Alkaline Phosphatase Total Protein Albumin Globulin Albumin/Globulin Ratio Urine Color Urine Appearance Urine pH Ur Specific [place] Urine Protein Urine Glucose (UA) Urine Ketones Urine Occult Blood Urine Nitrate Urine Bilirubin Urine Urobilinogen Ur Leukocyte Esterase Urine RBC Urine WBC Ur Squamous Epith Cells Urine Bacteria Ur Culture Indicated? U Random Total Protein Urine Creatinine Protein/Creatinin Ratio SARS-CoV-2 (PCR) 01/26/22 01/26/22 01/26/22 08:23 08:49 10:54 WBC RBC Hgb Hct MCV MCH MCHC RDW Plt Count Neut % (Auto) Lymph % (Auto) [place] % (Auto) Eos % (Auto) Baso % (Auto) Neut # (Auto) Lymph # (Auto) [place] # (Auto) Eos # (Auto) Baso # (Auto) Sodium 133 L Potassium 3.7 Chloride 104 Carbon Dioxide 24 BUN 6 L Creatinine 0.40 L Estimated GFR > 60 BUN/Creatinine Ratio 15.0 Glucose 110 H Uric Acid 3.4 Calcium 8.8 Magnesium 1.6 Total Bilirubin 0.2 AST 19 ALT 18 Alkaline Phosphatase 127 H Total Protein 6.3 Albumin 3.4 L Globulin 2.9 Albumin/Globulin Ratio 1.2 Urine Color Urine Appearance Urine pH Ur Specific [place] Urine Protein Urine Glucose (UA) Urine Ketones Urine Occult Blood Urine Nitrate Urine Bilirubin Urine Urobilinogen Ur Leukocyte Esterase Urine RBC Urine WBC Ur Squamous Epith Cells Urine Bacteria Ur Culture Indicated? U Random Total Protein 5 Urine Creatinine 119.3 Protein/Creatinin Ratio 0.04 SARS-CoV-2 (PCR) Negative 01/26/22 01/26/22 10:54 10:55 WBC RBC Hgb Hct MCV MCH MCHC RDW Plt Count Neut % (Auto) Lymph % (Auto) [place] % (Auto) Eos % (Auto) Baso % (Auto) Neut # (Auto) Lymph # (Auto) [place] # (Auto) Eos # (Auto) Baso # (Auto) Sodium Potassium Chloride Carbon Dioxide BUN Creatinine Estimated GFR BUN/Creatinine Ratio Glucose Uric Acid Calcium Magnesium Total Bilirubin AST ALT Alkaline Phosphatase Total Protein Albumin Globulin Albumin/Globulin Ratio Urine Color Yellow Urine Appearance Clear Urine pH 7.0 Ur Specific [place] 1.010 Urine Protein Trace H Urine Glucose (UA) Trace H Urine Ketones Trace H Urine Occult Blood Trace-lysed Urine Nitrate Negative Urine Bilirubin Negative Urine Urobilinogen 0.2 Ur Leukocyte Esterase Negative Urine RBC 0-1/hpf Urine WBC 5-10/hpf H Ur Squamous Epith Cells 10-30 /hpf H Urine Bacteria Many (>30) H Ur Culture Indicated? Culture not indicate U Random Total Protein Cancelled Urine Creatinine Cancelled Protein/Creatinin Ratio Cancelled SARS-CoV-2 (PCR) Assessment and Plan Assessment and Plan Assessment and Plan narrative: 31yo at 34w6d here in labor. GBS negative, Rh positive. was complicated by resistant chronic HTN, now with good control, without pre-eclampsia. The pt is betamethasone complete on 01/16/22. The pts BPs have been in excellent range here, without evidence of pre-eclampsia/HELLP on labs. The pt received 60mg Nifedipine ER this morning, in addition to a total of 4 doses of 10mg Nifedipine, and her contractions stopped for several hours. She was 2/90/0 at that time. They began again, and the pt received 10mg Nifedipine x 4 again, however unfortunately her contractions did not respond. She has now changed to 5/100/0. The pt did have a faintly positive amniosure at admission, however she had mild vaginal bleeding present. She has not been leaking any fluid since being in L&D. INDIGO is 18 today. Due to her gestation, < 35 weeks, the pt will be transferred to [facility], under the care of Dr Babb. Of note, the pt did have a uterine synechiae on ultrasound, putting her at higher risk for hemorrhage.
--- NOTE | 2022-01-26 17:30 | PM.AN.REGBLK ---
Regional Block Pre-procedure Procedure: Continuous Lumbar Epidural for L&D Attending OB provider: Renae Thompson PMH/ROS narrative: @ 36 weeks, chronic HTN, asthma, no complications with ASA Class: II Labs: Hct 34.1 % (36-46) L 01/26/22 08:01 Plt Count 277 X10^3/uL (150-400) 01/26/22 08:01 Medications: Current Medications Generic Name Dose Route Start Last Admin Trade Name Freq PRN Reason Stop Dose Admin Lactated Ringer's 1,000 mls @ 100 mls/hr 01/26/22 16:45 Lactated Ringers IV CONT KOMAL Allergies: Allergies Allergy/AdvReac Type Severity Reaction Status Date / Time avocado [AVOCADO] Allergy Unknown Verified 01/25/22 14:53 banana [BANANA] Allergy Unknown Verified 01/25/22 14:53 egg [EGG] Allergy Unknown Verified 01/25/22 14:53 Procedure Insertion date: 01/26/22 Insertion time: 17:10 Prep/Local: betadine x3 and 1% lidocaine Interspace: L3-4 Patient position: sitting Needle: 18 gauge Hustead (CSE: 27g Pencan through Hustead, clear CSF, 2.5mg MPF bupivacaine) Loss of resistance with: saline CRISTINA at (cm): 6 Catheter placed at SKIN (cm): 12 Catheter in SPACE (cm): 6 Insertion: No CSF, No Blood, No Paresthesia with insertion, No Paresthesia with injection and No Test dose reaction Initial Medications TEST DOSE time: 17:17 TEST DOSE: 1.5% lidocaine with epinephrine 1:200k (mL): 3 BOLUS DOSE time: 17:26 BOLUS DOSE (mL): 5 BOLUS DOSE med: other (infusate) Infusion INFUSION: 0.125% bupivacaine and with fentanyl 2 mcg/mL Initial rate (mL/hr): 6 Post-procedure Anesthesia time START: 17:00 Anesthesia time END: 20:28 Post-procedure Anesthesia Assessment: Yes CV function: HR/BP stable, Yes Resp function: RR/sat/airway adequate, Yes Mental status appropriate and No Anesthesia complications
--- NOTE | 2022-01-26 18:03 | P.PNOB_ITS ---
Date/Time Date Patient Seen: 01/26/22 Time Patient Seen: 18:03 Pain Control Pain control: epidural Pelvic Exam Dilation (cm): 9 Effacement (%): 100 station: 0 Amniotic membrane status: Intact Contractions Contraction frequency (min): 2 Status status: Category l Heart Rate Baseline: 130 Monitor Accelerations: Present Monitor Decelerations: Absent Monitor Variability: Moderate Assessment and Plan Comments: 31yo at 34w6d here in labor.? GBS negative, Rh positive.? was complicated by resistant chronic HTN, now with good control, without pre-eclampsia.? The pt is betamethasone complete on 01/16/22.? The pts BPs have been in excellent range here, without evidence of pre-eclampsia/HELLP on labs.? The pt received 60mg Nifedipine ER this morning, in addition to a total of 4 doses of 10mg Nifedipine, and her contractions stopped for several hours.? They began again, and the pt received 10mg Nifedipine x 4 again, however unfortunately her contractions did not respond.? The pt was set to transfer to [facility], with the ambulance team here, when she felt increased rectal pressure. On cervical exam, the pt was found to be 9cm. Transfer had to be cancelled due imminent delivery. She received an epidural for pain control. The pt does have a uterine synechiae. - Expectant management, anticipate - FHT reassuring - GBS negative, no prophylaxis indicated - Epidural in place for pain control - transfer team contacted to be present at delivery
[2022-01-26] MEDS: OXYTOCIN PREMIX 30 UNIT/500 ML PLAST..BAG 250 UNIT IV (20:39)
--- NOTE | 2022-01-26 20:58 | PM.OBPRVD ---
Events: Labor < 37 wks Labor & Delivery Delivery date: 01/26/22 Cervical ripening method: none Induction method: none Delivery monitor: external FHT and external uterine Route of delivery: Episiotomy description: None L&D Laceration Description: None Quantitative Blood Loss: 50 Anesthesia Type: Epidural Complications: None Narrative: PROCEDURE: at 34w6d presented with contractions and was admitted to Labor and Delivery. Her contractions initially responded to Nifedipine, however she then progressed rapidly prior to successful transfer. The patient progressed through the 1st stage over 6.5 hours. Pain was controlled with an epidural. The patient progressed through the 2nd stage over 49 minutes and delivered a viable female infant with APGARs 8/9 at 20:18 via without complications. The baby cries spontaneously immediately after delivery, and was placed on maternal abdomen. The cord was cut and clamped after 1 minute, and then the baby was taken to the warmer for evaluation. The placenta delivered with gentle cord traction and countertraction on the uterus. It was noted to be quite small with numerous calcifications. The perineum and vagina were inspected with no lacerations. PREPROCEDURE DIAGNOSIS: Intrauterine at 34w6d GBS negative RH positive Chronic hypertension Depression and anxiety Uterine synechiae POSTPROCEDURE DIAGNOSIS: Intrauterine at 34w6d, delivered Same as preprocedure [place] Baby 1: Infant gender: Female Presentation: vertex Position: Right Occiput Anterior Placenta delivery description: Spontaneous Cord Vessel Description: 3 Vessels score (1 min): 8 score (5 min): 9 weight: 5 lb 2.047 oz Plan for aftercare: Routine care
--- NOTE | 2022-01-27 05:56 | P.DS_ITS ---
Discharge Providers Provider Date of admission: 01/26/22 07:13 Discharge Date: 01/27/22 Primary care physician: Renae Thompson MD Consults: 01/27/22 21:00 Consult to Property Clerk Routine Comment: Discharge provider: Renae Thompson MD Summary Hospital Course Date Patient Seen: 01/27/22 Diagnoses: Intrauterine at 34w6d GBS negative RH positive Chronic hypertension Depression and anxiety Uterine synechiae Hospital Course: The pt presented with contractions. She received long and short acting Nifedipine, and her contractions completely stopped for several hours. She then began iza again, and Nifedipine was not able to control them. Her cervix changed to 5cm, and transfer was arranged. When the ambulance had arrived the pt was feeling increasing rectal pressure, and her cervix was then 9cm. The transfer was then cancelled. She received an epidural for pain control. The pt then had an of a viable baby girl with APGARs 8/9 on 01/26/22 without complications. There were no lacerations. The was transferred to [facility] due to prematurity, but was doing well on room air at the time of transfer. , there were no complications. The pts BPs remained in excellent range throughtout her hospitalization. At the time of discharge she was voiding, ambulating, and passing flatus without difficulty. Her lochia was decreasing appropriately. Her pain was well controlled. She was pumping to promote milk production. She will f/u in clinic in 2 weeks for BP check. Peripartum Data Delivery Method: Natural Vaginal Laceration Description: None Episiotomy description: None Procedures: Spontaneous vaginal delivery complications: none [place] 1: Gender: Female Disposition of : NICU Discharge Diagnosis (1) 34 weeks gestation of : Status: Acute (2) (spontaneous vaginal delivery): Status: Acute (3) Essential hypertension: Status: Acute Problem Details: Controlled w/ labetalol 300 mg BID (4) Depression: Status: Chronic Status at Discharge Cognitive/behavioral status at discharge: oriented Functional status at discharge: independent ambulation Overall status at discharge: patient is progressing back to baseline Time Spent with Patient Time attestation: Total time spent providing and/or coordinating discharge services: Objective Labs Result Diagrams: 01/26/22 08:01 01/27/22 06:30 Labs: Laboratory Results - last 24 hr 01/26/22 01/26/22 01/26/22 07:49 07:49 08:01 WBC Cancelled 15.8 H RBC Cancelled 3.86 L Hgb Cancelled 11.8 L Hct Cancelled 34.1 L MCV Cancelled 88.2 MCH Cancelled 30.5 MCHC Cancelled 34.5 RDW Cancelled 13.2 Plt Count Cancelled 277 Neut % (Auto) Cancelled 82.3 H Lymph % (Auto) Cancelled 10.8 L [place] % (Auto) Cancelled 6.5 Eos % (Auto) Cancelled 0.2 L Baso % (Auto) Cancelled 0.2 Neut # (Auto) Cancelled 87225 H Lymph # (Auto) Cancelled 1700 [place] # (Auto) Cancelled 1000 H Eos # (Auto) Cancelled 0 Baso # (Auto) Cancelled 0 Sodium Potassium Chloride Carbon Dioxide BUN Cancelled Creatinine Cancelled Estimated GFR Cancelled BUN/Creatinine Ratio Cancelled Glucose Uric Acid Cancelled Calcium Magnesium Total Bilirubin AST Cancelled ALT Alkaline Phosphatase Total Protein Albumin Globulin Albumin/Globulin Ratio Urine Color Urine Appearance Urine pH Ur Specific [place] Urine Protein Urine Glucose (UA) Urine Ketones Urine Occult Blood Urine Nitrate Urine Bilirubin Urine Urobilinogen Ur Leukocyte Esterase Urine RBC Urine WBC Ur Squamous Epith Cells Urine Bacteria Ur Culture Indicated? U Random Total Protein Urine Creatinine Protein/Creatinin Ratio SARS-CoV-2 (PCR) 01/26/22 01/26/22 01/26/22 08:23 08:49 10:54 WBC RBC Hgb Hct MCV MCH MCHC RDW Plt Count Neut % (Auto) Lymph % (Auto) [place] % (Auto) Eos % (Auto) Baso % (Auto) Neut # (Auto) Lymph # (Auto) [place] # (Auto) Eos # (Auto) Baso # (Auto) Sodium 133 L Potassium 3.7 Chloride 104 Carbon Dioxide 24 BUN 6 L Creatinine 0.40 L Estimated GFR > 60 BUN/Creatinine Ratio 15.0 Glucose 110 H Uric Acid 3.4 Calcium 8.8 Magnesium 1.6 Total Bilirubin 0.2 AST 19 ALT 18 Alkaline Phosphatase 127 H Total Protein 6.3 Albumin 3.4 L Globulin 2.9 Albumin/Globulin Ratio 1.2 Urine Color Urine Appearance Urine pH Ur Specific [place] Urine Protein Urine Glucose (UA) Urine Ketones Urine Occult Blood Urine Nitrate Urine Bilirubin Urine Urobilinogen Ur Leukocyte Esterase Urine RBC Urine WBC Ur Squamous Epith Cells Urine Bacteria Ur Culture Indicated? U Random Total Protein 5 Urine Creatinine 119.3 Protein/Creatinin Ratio 0.04 SARS-CoV-2 (PCR) Negative 01/26/22 01/26/22 10:54 10:55 WBC RBC Hgb Hct MCV MCH MCHC RDW Plt Count Neut % (Auto) Lymph % (Auto) [place] % (Auto) Eos % (Auto) Baso % (Auto) Neut # (Auto) Lymph # (Auto) [place] # (Auto) Eos # (Auto) Baso # (Auto) Sodium Potassium Chloride Carbon Dioxide BUN Creatinine Estimated GFR BUN/Creatinine Ratio Glucose Uric Acid Calcium Magnesium Total Bilirubin AST ALT Alkaline Phosphatase Total Protein Albumin Globulin Albumin/Globulin Ratio Urine Color Yellow Urine Appearance Clear Urine pH 7.0 Ur Specific [place] 1.010 Urine Protein Trace H Urine Glucose (UA) Trace H Urine Ketones Trace H Urine Occult Blood Trace-lysed Urine Nitrate Negative Urine Bilirubin Negative Urine Urobilinogen 0.2 Ur Leukocyte Esterase Negative Urine RBC 0-1/hpf Urine WBC 5-10/hpf H Ur Squamous Epith Cells 10-30 /hpf H Urine Bacteria Many (>30) H Ur Culture Indicated? Culture not indicate U Random Total Protein Cancelled Urine Creatinine Cancelled Protein/Creatinin Ratio Cancelled SARS-CoV-2 (PCR) Exam Narrative Exam Narrative: Gen: NAD, sitting comfortably in bed, appears well CV: RRR, no murmurs Resp: clear to auscultation bilaterally Abd: soft, appropriately tender, fundus firm and below the umbilicus, nondistended Ext: no edema Discharge Plan Discharge Plan Patient Disposition: Home Discharge orders & Medications Prescriptions: New acetaminophen 325 mg Tablet 650 mg PO Q6HR PRN (Reason: Pain, Mild (1-3)) Qty: 30 0RF docusate sodium 100 mg Capsule 100 mg PO DAILY Qty: 30 0RF ibuprofen 600 mg Tablet 600 mg PO Q6HR PRN (Reason: Pain, Mild (1-3)) Qty: 30 0RF labetalol 100 mg Tablet 100 mg PO BID Qty: 30 0RF atenolol 50 mg Tablet 75 mg PO DAILY Qty: 30 0RF Continued albuterol sulfate 90 mcg/actuation HFA aerosol inhaler 2 puff INHALATION Q4-6H PRN (Reason: bronchospasm) Qty: 8.5 0RF nifedipine 60 mg tablet extended release 60 mg PO DAILY Qty: 30 2RF hydroxyzine HCl 25 mg tablet See Rx Instructions .ROUTE .COMPLEX Qty: 60 5RF Hold Instructions: , per Dr. Chinchilla Dose Instruction: TAKE 1 TO 2 TABLETS BY MOUTH 3 TO 4 TIMES DAILY NEEDED FOR ANXIETY Rx Instructions: TAKE 1 TO 2 TABLETS BY MOUTH 3 TO 4 TIMES DAILY NEEDED FOR ANXIETY escitalopram oxalate 5 mg tablet See Rx Instructions .ROUTE .COMPLEX Qty: 90 1RF Dose Instruction: TAKE 1 TABLET BY MOUTH DAILY Rx Instructions: TAKE 1 TABLET BY MOUTH DAILY Discontinued labetalol 300 mg tablet 300 mg PO BID Qty: 180 2RF Follow up/Referrals: Renae Thompson MD [Primary Care Provider] - 2 Weeks (Please follow up with Dr. Thompson on February 18 @ 1115AM. Please call the clinic with any questions.) Diet/Activity/Treatments Diet: Diet as Tolerated and Regular Skin/Wound/Dressing Care Report to your healthcare provider any signs of infection, such as:: chills, fever, increased pain and unusual drainage Visit Report/Discharge Packet Instructions: DI for Labor and Delivery, Vaginal Stand Alone Forms: Discharge: Care Visit Report Forms: Patient Portal/API, Stroke Signs & Symptoms Discharge Data Primary Care Provider: Renae Thompson Discharges patient from system. Discharge Date/Time: 01/27/22 09:45
[2022-01-27 08:16] LABS: Carbon Dioxide 24 mmol/L (22-32); Chloride 107 mmol/L (98-107); HEMOLYSIS < 15 (0-50); Potassium 3.7 mmol/L (3.4-5.1); Sodium 136 mmol/L (137-145)
[2022-01-27 08:21] VITALS: BP 145/76; PULSE 72; RESP 16; TEMP 36.7
[2022-01-27] MEDS: ESCITALOPRAM 10 MG TABLET 5 MG PO (09:11)
[2022-01-27] MEDS: PRENATAL VIT,CALC/IRON/FOLIC 1 TABLET 1 TAB PO (09:11)
[2022-01-27] MEDS: ACETAMINOPHEN 325 MG TABLET 650 MG PO (09:11)
[2022-01-27] MEDS: NIFEdipine 30 MG TAB ER 60 MG PO (09:11)
[2022-01-27 09:12] VITALS: BP 147/72; PULSE 75
[2022-01-27] MEDS: LABETALOL 100 MG TABLET PO (09:12)
[2022-01-27] MEDS: IBUPROFEN 600 MG TABLET PO (09:12)
[2022-01-27] MEDS: DOCUSATE 100 MG CAPSULE PO (09:16)
== END 2022-01-27 09:45 | disposition home or self-care (01) | DRG 806 ==
PROVIDERS: Admitting Provider Obstetrics & Gynecology; Family Provider Family Medicine; PCP Family Medicine; Referring Provider Obstetrics & Gynecology; Visit Provider Obstetrics & Gynecology
DX: O60.14X0 Preterm labor third trimester with preterm delivery third trimester, not applicable or unspecified (principal); O10.92 Unspecified pre-existing hypertension complicating childbirth; Z37.0 Single live birth; Z3A.34 34 weeks gestation of pregnancy; Z20.822 Contact with and (suspected) exposure to COVID-19; O99.344 Other mental disorders complicating childbirth; F41.9 Anxiety disorder, unspecified; F32.A Depression, unspecified
CPT/HCPCS: 01967; 36415; 59025; 59050; 59400; 76816; 80051; 80053; 81001; 82570; 83735; 84112; 84156; 84550; 85025; 87086; 87635; 96360; C9803; G0379; J2590

== ENCOUNTER → 2022-12-07 18:09 | Outpatient (CLI) | payer OTHER, SELFPAY | PROVIDERS: Family Provider Family Medicine; PCP Family Medicine; Visit Provider Student in an Organized Health Care Education/Training Program | DX: J02.9 Acute pharyngitis, unspecified (principal) | CPT/HCPCS: 87070; 87077; 87147 ==

== ENCOUNTER → 2022-12-28 15:15 | Outpatient (CLI) | payer OTHER, SELFPAY ==
--- NOTE | 2022-12-28 15:17 | DI.RAD.S_ITS ---
PROCEDURE: XR CHEST 2V INDICATIONS: Persistent cough; low grade fever TECHNIQUE: 2 views of the chest were acquired. COMPARISON: [facility], , CHEST 2 VIEW, 07/17/2007, 14:52. FINDINGS: Surgical changes and devices: None. Lungs and pleura: Lungs are clear. No pleural effusions or pneumothorax. Mediastinum: Mediastinal contours are normal. Heart size is normal. Bones and chest wall: No suspicious bony abnormalities. Soft tissues appear unremarkable. IMPRESSION: No acute cardiopulmonary abnormality. Dictated by: Zacarias Hernadez M.D. on 12/28/2022 at 16:39 Approved by: Zacarias Hernadez M.D. on 12/28/2022 at 16:40
[2022-12-28 17:17] LABS: Add Manual Diff / Slide Review NO; Basophils Absolute Auto 0 /uL (0-100); Basophils Percent Auto 0.5 % (0-2); Eosinophils Absolute Auto 100 /uL (0-450); Eosinophils Percent Auto 1.3 % (2-4); Hemoglobin 13.2 g/dL (12.0-16.0); Lymphocytes Absolute Auto 1800 /uL (1100-4500); Lymphocytes Percent Auto 27.3 % (25-40); Mean Corpuscular HGB Conc 33.8 % (30-36); Mean Corpuscular Volume 88.9 fL (80-100); Monocytes Absolute Auto 400 /uL (0-900); Monocytes Percent Auto 6.6 % (3-14); Neutrophils Absolute Auto 4300 /uL (1500-7000); Neutrophils Percent Auto 64.3 % (50-75); Platelet Count 264 X10^3/uL (150-400); Red Blood Cell Count 4.39 X10^6/uL (4.0-5.2); Red Cell Distribution Width 13.5 % (11.6-14.8); White Blood Cell Count 6.6 X10^3/uL (4.5-11.0)
== END ==
PROVIDERS: Family Provider Family Medicine; PCP Family Medicine; Referring Provider Physician Assistant; Visit Provider Physician Assistant
DX: R05.9 Cough, unspecified (principal); R50.9 Fever, unspecified
CPT/HCPCS: 36415; 71046; 85025

== ENCOUNTER → 2023-02-01 07:59 | Outpatient (CLI) | payer OTHER, SELFPAY ==
[2023-02-01 08:25] LABS: Add Manual Diff / Slide Review NO; Basophils Absolute Auto 0 /uL (0-100); Basophils Percent Auto 0.7 % (0-2); Eosinophils Absolute Auto 100 /uL (0-450); Eosinophils Percent Auto 1.7 % (2-4); Hemoglobin 13.1 g/dL (12.0-16.0); Lymphocytes Absolute Auto 1300 /uL (1100-4500); Lymphocytes Percent Auto 25.1 % (25-40); Mean Corpuscular HGB Conc 33.7 % (30-36); Mean Corpuscular Volume 88.9 fL (80-100); Monocytes Absolute Auto 500 /uL (0-900); Monocytes Percent Auto 9.2 % (3-14); Neutrophils Absolute Auto 3400 /uL (1500-7000); Neutrophils Percent Auto 63.3 % (50-75); Platelet Count 209 X10^3/uL (150-400); Red Blood Cell Count 4.39 X10^6/uL (4.0-5.2); Red Cell Distribution Width 13.3 % (11.6-14.8); White Blood Cell Count 5.3 X10^3/uL (4.5-11.0)
[2023-02-01 08:50] LABS: Alanine Aminotransferase 13 IU/L (<35); Albumin Globulin Ratio 1.7 (1.0-2.8); Alkaline Phosphatase 64 U/L (38-126); Aspartate Aminotransferase 16 IU/L (14-36); BUN Creatinine Ratio 9.1 (6-22); Bilirubin Total 0.4 mg/dL (0.2-1.3); Blood Urea Nitrogen 6 mg/dL (7-17); Calcium 8.5 mg/dL (8.4-10.2); Carbon Dioxide 30 mmol/L (22-32); Chloride 104 mmol/L (98-107); Cholesterol 150 mg/dL (140-199); Estimated Glomerular Filt Rate > 60 mL/min (>60); Globulin 2.3 g/dL (1.7-4.1); Glucose 91 mg/dL (70-100); HDL Cholesterol 53 mg/dL (40-60); HEMOLYSIS < 15 (0-50); LDL Cholesterol Calculated 83 mg/dL (<100); Potassium 3.9 mmol/L (3.4-5.1); Sodium 138 mmol/L (137-145); Total Protein 6.3 g/dL (6.3-8.2); Triglycerides 68 mg/dL (35-150)
[2023-02-01 09:03] LABS: Free T3, Triiodothyronine Free 3.94 pg/mL (2.77-5.27); Free T4, Direct Thyroxine 1.04 ng/dL (0.78-2.19)
[2023-02-01 09:12] LABS: Microalbumin Urine Random 1.2 mg/dL (0-1.6)
[2023-02-01 09:17] LABS: Thyroid Stimulating Hormone 1.91 uIU/mL (0.47-4.68)
[2023-02-01 09:52] LABS: Creatinine Urine Random 414.3 mg/dL; Microalbumi Creatinin Ratio Ur 2.8 ug/mg CR (<30)
== END ==
PROVIDERS: Family Provider Family Medicine; PCP Family Medicine; Referring Provider Family Medicine; Visit Provider Family Medicine
DX: I10 Essential (primary) hypertension (principal); R53.83 Other fatigue
CPT/HCPCS: 36415; 80053; 80061; 82043; 82570; 84439; 84443; 84481; 85025

== ENCOUNTER → 2023-02-08 14:17 | Outpatient (CLI) | payer OTHER, SELFPAY ==
--- NOTE | 2023-02-08 14:18 | DI.US.S_ITS ---
PROCEDURE: US THYROID INDICATIONS: Nontoxic goiter, unspecified TECHNIQUE: Real-time scanning was performed of the thyroid gland, with image documentation. COMPARISON: None. FINDINGS: Right: Thyroid lobe measures 4.9 x 1.7 x 1.5 cm, and is homogeneous in echotexture. Left: Thyroid lobe measures 4.4 x 1.6 x 1.4 cm, and is homogenous in echotexture. Isthmus: 1.3 mm thick. Nodule number: 1 Location: Left superior thyroid Size: 1.8 x 1.0 x 1.2 cm. Composition: Solid Echogenicity: Hyperechoic Shape: wider than tall. Margins: Smooth Echogenic foci: Non Total points: 3 ACR TI-RADS category: 3 Recommendations: Follow-up imaging at 1, 3, and 5 years. Nodule number: 2 Location: Right mid thyroid Size: 0.6 x 0.4 x 0.5 cm. Composition: Predominantly cystic Echogenicity: Hypoechoic Shape: wider than tall. Margins: Irregular Echogenic foci: 9 Total points: 3 ACR TI-RADS category: 3 Recommendations: No follow-up necessary. IMPRESSION: 1. Bilateral thyroid nodules with follow-up recommended as above. Dictated by: Seda Rivers M.D. on 02/08/2023 at 16:39 Approved by: Seda Rivers M.D. on 02/08/2023 at 16:42
== END ==
PROVIDERS: Family Provider Family Medicine; PCP Family Medicine; Referring Provider Family Medicine; Visit Provider Family Medicine
DX: E04.2 Nontoxic multinodular goiter (principal)
CPT/HCPCS: 76536

== ENCOUNTER → 2023-05-24 09:08 | Outpatient (CLI) | payer OTHER, SELFPAY | PROVIDERS: Family Provider Family Medicine; PCP Family Medicine; Visit Provider Family Medicine | DX: N93.0 Postcoital and contact bleeding (principal) | CPT/HCPCS: 87210 ==

== ENCOUNTER → 2024-01-02 13:22 | Outpatient (CLI) | payer OTHER, SELFPAY ==
--- NOTE | 2024-01-02 13:23 | DI.US.S_ITS ---
PROCEDURE: US THYROID INDICATIONS: F/U NODULES TECHNIQUE: Real-time scanning was performed of the thyroid gland, with image documentation. COMPARISON: [facility], US, US THYROID, 02/08/2023, 14:31. FINDINGS: Thyroid: Right lobe measures 4.8 x 1.9 x 1.5 cm. Left lobe measures 4.3 x 2.2 x 1.5 cm. Isthmus is 0.1 cm thick. Echotexture is homogeneous. Nodule number: 1 Location: Left superior Size: Stable at 1.9 cm. Composition: Solid Echogenicity: Isoechoic Shape: wider than tall. Margins: Smooth Echogenic foci: No Total points: 3 ACR TI-RADS category: Mildly suspicious Nodule number: 2 Location: Right mid Size: Stable 0.5 cm. Composition: Predominantly solid Echogenicity: Hypoechoic Shape: wider than tall. Margins: Smooth Echogenic foci: None Total points: 3 ACR TI-RADS category: Mildly suspicious IMPRESSION: Thyroid nodule as above. Recommend follow-up ultrasound in 2 years. ACR TI-RADS definitions and recommendations: TI-RADS 1 (benign): 0 points. FNA not needed. TI-RADS 2 (not suspicious): 2 points. FNA not needed. TI-RADS 3 (mildly suspicious): 3 points. * FNA if 2.5 cm or larger, follow up if 1.5 cm or larger (at 1, 3, and 5 years). TI-RADS 4 (moderately suspicious): 4-6 points. * FNA if 1.5 cm or larger, follow up if 1 cm or larger (at 1, 2, 3, and 5 years). TI-RADS 5 (highly suspicious): 7 points or more. * FNA if 1 cm or larger, follow up if 0.5 cm or larger (every year for 5 years). Dictated by: Pieter Lomax M.D. on 01/02/2024 at 16:28 Approved by: Pieter Lomax M.D. on 01/02/2024 at 16:31
== END ==
PROVIDERS: Family Provider Family Medicine; PCP Family Medicine; Referring Provider Family Medicine; Visit Provider Family Medicine
DX: E04.2 Nontoxic multinodular goiter (principal)
CPT/HCPCS: 76536

== ENCOUNTER → 2024-01-13 17:53 | Outpatient (CLI) | payer OTHER, SELFPAY | PROVIDERS: Family Provider Family Medicine; PCP Family Medicine; Referring Provider Physician Assistant Surgical; Visit Provider Physician Assistant Surgical | DX: J02.9 Acute pharyngitis, unspecified (principal) | CPT/HCPCS: 87070 ==

== ENCOUNTER → 2024-03-28 09:07 | Outpatient (CLI) | payer OTHER, SELFPAY ==
[2024-03-28 10:30] LABS: Add Manual Diff / Slide Review NO; Basophils Absolute Auto 0 /uL (0-100); Basophils Percent Auto 0.6 % (0-2); Eosinophils Absolute Auto 100 /uL (0-450); Eosinophils Percent Auto 1.1 % (2-4); Hematocrit 38.2 % (36-46); Hemoglobin 12.8 g/dL (12.0-16.0); Lymphocytes Absolute Auto 1500 /uL (1100-4500); Lymphocytes Percent Auto 33.4 % (25-40); Mean Corpuscular HGB Conc 33.6 % (30-36); Mean Corpuscular Hemoglobin 29.8 PG (26-34); Mean Corpuscular Volume 88.9 fL (80-100); Monocytes Absolute Auto 400 /uL (0-900); Monocytes Percent Auto 9.4 % (3-14); Neutrophils Absolute Auto 2400 /uL (1500-7000); Neutrophils Percent Auto 55.5 % (50-75); Platelet Count 250 X10^3/uL (150-400); Red Blood Cell Count 4.29 X10^6/uL (4.0-5.2); Red Cell Distribution Width 12.9 % (11.6-14.8); White Blood Cell Count 4.4 X10^3/uL (4.5-11.0)
[2024-03-28 10:59] LABS: Alanine Aminotransferase 13 IU/L (<35); Albumin Globulin Ratio 1.7 (1.0-2.8); Alkaline Phosphatase 58 U/L (38-126); Aspartate Aminotransferase 19 IU/L (14-36); BUN Creatinine Ratio 11.8 (6-22); Bilirubin Total 0.5 mg/dL (0.2-1.3); Blood Urea Nitrogen 8 mg/dL (7-17); Carbon Dioxide 25 mmol/L (22-32); Chloride 106 mmol/L (98-107); Estimated Glomerular Filt Rate > 60 mL/min (>60); Globulin 2.4 g/dL (1.7-4.1); Glucose 88 mg/dL (70-100); HEMOLYSIS < 15 (0-50); Potassium 4.3 mmol/L (3.4-5.1); Sodium 137 mmol/L (137-145); Total Protein 6.4 g/dL (6.3-8.2)
[2024-03-28 11:14] LABS: Follicle Stimulating Hormone 1.38 mIU/mL
[2024-03-28 11:30] LABS: Estradiol, Total 34.1 pg/mL
[2024-03-28 11:35] LABS: Testosterone 36.8 ng/dL (5.71-77.0); Thyroid Stimulating Hormone 1.45 uIU/mL (0.47-4.68)
== END ==
PROVIDERS: Family Provider Family Medicine; PCP Family Medicine; Referring Provider Family Medicine; Visit Provider Family Medicine
DX: N92.0 Excessive and frequent menstruation with regular cycle (principal)
CPT/HCPCS: 36415; 80053; 82670; 83001; 84403; 84443; 85025

== ENCOUNTER → 2024-03-28 15:14 | Outpatient (CLI) | payer OTHER, SELFPAY ==
--- NOTE | 2024-03-28 15:15 | DI.US.S_ITS ---
PROCEDURE: US PELVIC COMPLETE INDICATIONS: menorrhagia TECHNIQUE: Real-time scanning was performed of the pelvic organs, with image documentation. Additional endovaginal scanning was necessary due to incomplete visualization of the adnexal and endometrial structures by transabdominal scanning. COMPARISON: [facility], US, US PELVIC COMPLETE, 05/31/2018, 11:14. FINDINGS: Uterus: Uterus is anteverted and normal in size at 7.3 x 2.7 x 3.6 cm. The myometrium is homogeneous. The endometrium measures 4 mm combined thickness. Echogenic foci are seen in the endometrium, nonspecific, probable calcifications. Ovaries: The right ovary measures 2.6 x 1.4 x 1.3 cm, with a calculated ovarian volume of 2.5 cc. The left ovary measures 1.6 x 1.0 x 0 point cm, with a calculated ovarian volume of 0.75 cc. The ovaries have a normal sonographic appearance. Less than 12 follicles can be seen in each ovary. No adnexal masses are seen. Other: No pathologic free abdominal or pelvic fluid. IMPRESSION: Unremarkable pelvic ultrasound. Approved by: Shannon Hood M.D.,Ph.D. on 03/29/2024 at 3:45
== END ==
PROVIDERS: Family Provider Family Medicine; PCP Family Medicine; Referring Provider Family Medicine; Visit Provider Family Medicine
DX: N92.0 Excessive and frequent menstruation with regular cycle (principal)
CPT/HCPCS: 36415; 76830; 76856; 80053; 82670; 83001; 84403; 84443; 85025

== ENCOUNTER → 2024-09-17 08:48 | Outpatient (CLI) | payer OTHER, SELFPAY ==
[2024-09-17 11:02] LABS: HCG Quantitative /Beta subunit < 2.39 mIU/mL
== END ==
PROVIDERS: Family Provider Family Medicine; PCP Family Medicine; Referring Provider Family Medicine; Visit Provider Family Medicine
DX: O20.0 Threatened abortion (principal)
CPT/HCPCS: 36415; 84702

== ENCOUNTER → 2024-11-27 09:51 | Outpatient (CLI) | payer OTHER, SELFPAY ==
[2024-11-27 10:13] LABS: Add Manual Diff / Slide Review NO; Basophils Absolute Auto 0 /uL (0-100); Basophils Percent Auto 0.6 % (0-2); Eosinophils Absolute Auto 100 /uL (0-450); Eosinophils Percent Auto 1.3 % (2-4); Hemoglobin 13.1 g/dL (12.0-16.0); Lymphocytes Absolute Auto 1700 /uL (1100-4500); Lymphocytes Percent Auto 33.5 % (25-40); Mean Corpuscular HGB Conc 34.4 % (30-36); Mean Corpuscular Hemoglobin 30.6 PG (26-34); Monocytes Absolute Auto 500 /uL (0-900); Monocytes Percent Auto 9.5 % (3-14); Neutrophils Absolute Auto 2800 /uL (1500-7000); Neutrophils Percent Auto 55.1 % (50-75); Platelet Count 222 X10^3/uL (150-400); Red Blood Cell Count 4.27 X10^6/uL (4.0-5.2); Red Cell Distribution Width 13.5 % (11.6-14.8)
[2024-11-27 10:22] LABS: Hemoglobin A1C% w Est Avg Glu 4.8 % (4.0-6.0)
[2024-11-27 10:34] LABS: Alanine Aminotransferase 17 IU/L (<35); Albumin 4.2 g/dL (3.5-5.0); Albumin Globulin Ratio 1.8 (1.0-2.8); Alkaline Phosphatase 53 U/L (38-126); Aspartate Aminotransferase 21 IU/L (14-36); BUN Creatinine Ratio 16.4 (6-22); Bilirubin Total 0.5 mg/dL (0.2-1.3); Blood Urea Nitrogen 10 mg/dL (7-17); Carbon Dioxide 26 mmol/L (22-32); Chloride 105 mmol/L (98-107); Cholesterol 151 mg/dL (140-199); Estimated Glomerular Filt Rate > 60 mL/min (>60); Globulin 2.3 g/dL (1.7-4.1); Glucose 89 mg/dL (70-99); HDL Cholesterol 65 mg/dL (40-60); HEMOLYSIS < 15 (0-50); LDL Cholesterol Calculated 72 mg/dL (<100); Potassium 4.3 mmol/L (3.4-5.1); Sodium 137 mmol/L (137-145); Total Protein 6.5 g/dL (6.3-8.2); Triglycerides 70 mg/dL (35-150)
[2024-11-27 11:05] LABS: Thyroid Stimulating Hormone 2.36 uIU/mL (0.47-4.68)
== END ==
PROVIDERS: Family Provider Family Medicine; PCP Family Medicine; Referring Provider Family Medicine; Visit Provider Family Medicine
DX: E66.3 Overweight (principal)
CPT/HCPCS: 36415; 80053; 80061; 83036; 84443; 85025

== ENCOUNTER → 2025-01-15 13:53 | Outpatient (CLI) | payer OTHER, SELFPAY ==
--- NOTE | 2025-01-15 16:53 | DIET.OUTPTC ---
Dietary Outpatient Consult Consult Date:01/15/25 Assessment:? 34 y F referred to dietitian for obesity and HTN. Reports difficulty losing weight despite reducing PO intakes and increasing exercise and daily steps. Reports started focusing on nutrition when 26, but weight has been stable at 175 lb. Has a young kid. GI symptoms: Denies D/C/N/V, occasional heartburn with trigger foods Gets itchy if eats shellfish. Diet Recall: Up at 7am -1-2 cups coffee with 1/4 cup vanilla ID creamer each 1pm- protein shake (either gold standard protein powder w/ half whole milk and half water or premier protein) 6pm-3-4 oz meat/chk, 2 serving vegs, 1/3 cup carb 8pm-hungry- beef jerky OR skinny dip pb cups (Brainloop) OR cheddar Tamra's cracker -eats it rapidly goes to bed hungry Fluids: 48 oz water daily, 1 regular redbull Ht:?5 ft 4in? Wt:?171 lb? BMI:?29.3? UBW: 175 lb Activity:30 min elliptical 3x/wk, has tried to start weight lifting, difficult to continue d/t dislike this form of resistance training- been doing arm dumbbell weights Pertinent Labs:labs within normal limits, except high HDL at 65 Nutrition Diagnosis:? Inadequate oral intake r/t over restriction for weight loss aeb diet recall with limited daytime PO intakes and excess hunger before bed and rapid eating of snacks Interventions:? Discussed and provided appropriate resources on the following: -Adequate intake, increasing daytime eating to help with nighttime hunger -Hunger/fullness scale -Myplate for balanced meals and snacks -Label reading for added sugar and sat. fat and fiber -Physical activity Goals: -Breakfast: fruit with kid plus protein waffles OR eggs -Lunch: add pb sandwich and vegs -Stop redbull - sub with 0 paras fizzy drink or crystal light caffeine (60mg caffeine) -Discussion with spouse to provide supportive words over unhelpful comments Will discuss other resistance exercises that may be more enjoyable at next visit EER:? 25-28 g fiber, 90 oz fluids (35 ml/kg) Monitoring/Evaluations:? F/u in 3 wks Electronically Signed by: Scarlet Garrison Clinical Dietitian [address] [place] [address]
== END ==
LOC: DIET 13:53
PROVIDERS: Family Provider Family Medicine; PCP Family Medicine
DX: E66.9 Obesity, unspecified (principal); I10 Essential (primary) hypertension; Z71.3 Dietary counseling and surveillance; Z68.29 Body mass index [BMI] 29.0-29.9, adult
CPT/HCPCS: 97802

== ENCOUNTER → 2025-03-24 08:23 | Outpatient (CLI) | payer OTHER, SELFPAY ==
[2025-03-24 09:17] LABS: Add Manual Diff / Slide Review NO; Hematocrit 37.6 % (36-46); Hemoglobin 12.9 g/dL (12.0-16.0); Lymphocytes Absolute Auto 1400 /uL (1100-4500); Mean Corpuscular HGB Conc 34.5 % (30-36); Mean Corpuscular Hemoglobin 30.7 PG (26-34); Mean Corpuscular Volume 89.0 fL (80-100); Platelet Count 207 X10^3/uL (150-400)
[2025-03-24 09:27] LABS: Natera Collection Specimen Collected
[2025-03-24 09:42] LABS: Alanine Aminotransferase 14 IU/L (<35); Blood Urea Nitrogen 6 mg/dL (7-17); Estimated Glomerular Filt Rate > 60 mL/min (>60); Uric Acid 3.1 mg/dL (2.5-6.2)
[2025-03-24 09:54] LABS: Free T4, Direct Thyroxine 0.91 ng/dL (0.78-2.19)
[2025-03-24 10:07] LABS: Thyroid Stimulating Hormone 2.81 uIU/mL (0.47-4.68)
[2025-03-24 13:34] LABS: Appearance Urine UA CLEAR; Bilirubin Urine UA NEGATIVE (NEGATIVE); Color Urine UA YELLOW; Glucose Urine UA NEGATIVE (Negative); Ketones Urine UA NEGATIVE (NEGATIVE); Leukocyte Esterase Urine UA NEGATIVE (NEGATIVE); Nitrite Urine UA NEGATIVE (Negative); Occult Blood Urine UA NEGATIVE (Negative); Protein Urine UA NEGATIVE (Negative); Specific Gravity Urine UA <=1.005 (1.000-1.035); Urobilinogen Urine UA 0.2 E.U./dL (0.2)
[2025-03-24 13:36] LABS: pH Urine UA 7.0 (4.5-8.0)
[2025-03-24 14:58] LABS: Urine N gonorrhoeae NOT DETECTED
[2025-03-24 15:01] LABS: Urine Chlamydia NOT DETECTED
[2025-03-25 15:05] LABS: Hepatitis B Surface Antigen NEGATIVE s/c (NEGATIVE)
[2025-03-25 15:22] LABS: HIV 1 & 2 Ab/Ag 4th Gen Combo NEGATIVE (NEGATIVE); Hep C Virus Ab w/Reflex Quant NEGATIVE s/c (NEGATIVE)
== END ==
PROVIDERS: PCP Family Medicine; Referring Provider Family Medicine; Visit Provider Family Medicine
DX: O09.899 Supervision of other high risk pregnancies, unspecified trimester (principal); J43.9 Emphysema, unspecified
CPT/HCPCS: 36415; 80055; 81003; 82565; 84439; 84443; 84450; 84460; 84520; 84550; 86787; 86803; 86850; 86900; 86901; 87086; 87389; 87491; 87591

== ENCOUNTER → 2025-05-08 06:39 | Outpatient (CLI) | payer OTHER, SELFPAY ==
--- NOTE | 2025-05-08 06:39 | DI.US.S_ITS ---
PROCEDURE: US THYROID INDICATIONS: enlarged TECHNIQUE: Real-time scanning was performed of the thyroid gland, with image documentation. COMPARISON: [facility], US, US THYROID, 01/02/2024, 13:46. FINDINGS: Thyroid: Right lobe measures 5.9 x 1.9 x 2.0 cm. Left lobe measures 5.0 x 2.1 x 1.8 cm. Isthmus is 2 cm thick. Echotexture is heterogeneous. Nodule number: 1 Location: Left mid to upper Size: 1.6 x 1.0 x 1.5 cm, previously 1.9 x 1.1 x 1.3 cm. Composition: Solid Echogenicity: Hyperechoic Shape: wider than tall. Margins: Smooth Echogenic foci: None. Total points: 3 ACR TI-RADS category: 3, mildly suspicious Nodule number: 2 Location: Right mid Size: 0.6 x 0.3 x 0.4 cm, previously 0.5 x 0.5 x 0.3 cm. Composition: Predominately solid Echogenicity: Hypoechoic Shape: Wider than tall Margins: Smooth Echogenic foci: None Total points: 4 ACR TI-RADS category: 4, moderately suspicious IMPRESSION: Smaller 1.6 cm left upper TI-RADS 3 and stable 0.6 cm right mid TI-RADS 4 nodules. Recommend follow-up in 2 years. No nodule warranting immediate percutaneous biopsy. No pathologic lymphadenopathy. ACR TI-RADS definitions and recommendations: TI-RADS 1 (benign): 0 points. FNA not needed. TI-RADS 2 (not suspicious): 2 points. FNA not needed. TI-RADS 3: 3 points. * FNA if 2.5 cm or larger, follow up if 1.5 cm or larger (at 1, 3, and 5 years). TI-RADS 4: 4-6 points. * FNA if 1.5 cm or larger, follow up if 1 cm or larger (at 1, 2, 3, and 5 years). TI-RADS 5: 7 points or more. * FNA if 1 cm or larger, follow up if 0.5 cm or larger (every year for 5 years). Dictated by: Teresa Berger M.D. on 05/09/2025 at 13:37 Approved by: Teresa Berger M.D. on 05/09/2025 at 13:43
== END ==
LOC: US 06:39
PROVIDERS: PCP Family Medicine; Referring Provider Family Medicine; Visit Provider Family Medicine
DX: E04.2 Nontoxic multinodular goiter (principal)
CPT/HCPCS: 76536

== ENCOUNTER → 2025-05-27 06:59 | Outpatient (CLI) | payer OTHER, SELFPAY ==
--- NOTE | 2025-05-27 07:00 | DI.US.S_ITS ---
PROCEDURE: US OB >= 14 WEEKS FETUS INDICATIONS: ANATOMY TECHNIQUE: Real-time scanning was performed of the fetus, with image documentation and biometric measurements. Calculations are based on a working DAMASO of 10/20/2025. COMPARISON: None. FINDINGS: General: A single living intrauterine gestation is present. Presentation: Breech. Placenta: Placental position is anterior , without previa. Amniotic fluid index: 11.7 cm, normal range is 5-24 cm. Single deepest vertical pocket is 4.3 cm. heart rate: 141 beats per minute. Maternal cervical canal: 4.4 cm long. Normal lower limit is 2.5 cm. biometrics: Biparietal diameter: 4.6 cm, 19 week 5 day Head circumference: 16.8 cm, 19 week 3 day Abdominal circumference: 14.6 cm, 19 week 6 day Femur length: 3.0 cm, 19 week 2 day Clinically estimated gestational age: 19 week 1 day Composite gestational age from present scan: 19 week 4 day Estimated weight and percentile: 301 g, 72% Anatomic survey: Neuro: Ventricles are non-dilated at less than 10 mm. Cisterna magna is normal at 3-11 mm. Cerebellum is normal in size and morphology. Nuchal skin fold: Normal at less than 6 mm between 14-21 weeks gestational age. Face: Nose and lips normal. Facial profile not observed. Spine: No evidence for spina bifida. Heart: 4-chambered heart is present, with normal ventricular outflow tracts. Diaphragm: Diaphragm is intact. Stomach: Left-sided stomach is present. Kidneys: No hydronephrosis. Normal is less than 5 mm in 2nd trimester, less than 7 mm in 3rd trimester. Cord: 3-vessel cord has orthotopic insertion. Bladder: Normal in size. Extremities: All 4 extremities identified. IMPRESSION: Single live intrauterine consistent with 19 week 4 day gestation. facial profile not well seen. Otherwise unremarkable anatomic survey Approved by: Sukhdeep Lee M.D. on 05/27/2025 at 15:51
== END ==
LOC: US 07:00
PROVIDERS: PCP Family Medicine; Referring Provider Family Medicine; Visit Provider Family Medicine
DX: O09.892 Supervision of other high risk pregnancies, second trimester (principal); Z3A.19 19 weeks gestation of pregnancy
CPT/HCPCS: 76811

== ENCOUNTER → 2025-06-11 08:32 | Outpatient (CLI) | payer OTHER, SELFPAY ==
--- NOTE | 2025-06-11 08:33 | DI.US.S_ITS ---
PROCEDURE: US OB FOLLOW UP INDICATIONS: anatomey f/u face OUTSIDE/PRIOR DATING DATA: Last menstrual period (LMP): 01/06/2025. LMP-based estimated date of delivery (DAMASO): 10/13/2025. First dating scan (date and location): 03/10/2025. Estimated date of delivery (DAMASO) from first dating scan: 10/20/2025. The calculations are made using the ultrasound DAMASO of 10/20/2025. TECHNIQUE: Real-time scanning was performed of the fetus, with image documentation. Endovaginal scanning: Not performed COMPARISON: [facility], OB >= 14 WEEKS FETUS, 05/27/2025, 7:10. FINDINGS: A single living intrauterine gestation is present. Presentation: Vertex. Placenta: Placental position is anterior, without previa. Amniotic fluid index: 13.5 cm, normal range is 5-24 cm. Single deepest vertical pocket is 3.9 cm. heart rate: 147 beats per minute. Maternal cervical canal: 3.6 cm long. Normal lower limit is 2.5 cm. Clinically estimated gestational age: 21 weeks 2 days profile, nose and lips have a normal appearance. IMPRESSION: 1. Soler living intrauterine at 21 weeks 2 days based on prior dating. 2. Normal placenta and amniotic fluid. 3. Normal appearance of the profile and nose and lips. This completes the anatomic survey. Dictated by: Juilan Strickland M.D. on 06/11/2025 at 16:54 Approved by: Julian Strickland M.D. on 06/11/2025 at 16:56
== END ==
LOC: US 08:33
PROVIDERS: PCP Family Medicine; Referring Provider Family Medicine; Visit Provider Family Medicine
DX: O09.892 Supervision of other high risk pregnancies, second trimester (principal); Z3A.21 21 weeks gestation of pregnancy
CPT/HCPCS: 76816